=== PATIENT | male | born 1955 | race African-American/Black ===

== ENCOUNTER 2016-06-20 15:22 | Emergency (ER) | payer SELFPAY ==
[2016-06-20 17:55] LABS: Basophils % (Auto) 0.1 % (0.0-1.8); Eosinophils % (Auto) 1.7 % (0.0-4.3); Hematocrit 45.4 % (35.5-45.6); Hemoglobin 15.7 gm/dl (11.8-15.2); Mean Corpuscular HGB Conc 35 % (32-34); Mean Corpuscular Hemoglobin 31 pg (28-32); Mean Corpuscular Volume 89 fl (84-94); Platelet Count 205 K/mm3 (140-440); Red Blood Count 5.13 M/mm3 (3.65-5.03); White Blood Count 10.3 K/mm3 (4.5-11.0)
[2016-06-20 18:12] LABS: Urine Drugs of Abuse Note Disclamer
[2016-06-20 18:24] LABS: Anion Gap 15 mmol/L; BUN/Creatinine Ratio 28.33; Blood Urea Nitrogen 17 mg/dL (9-20); Calcium 9.6 mg/dL (8.4-10.2); Carbon Dioxide 28 mmol/L (22-30); Chloride 98.8 mmol/L (98-107); Glucose 100 mg/dL (75-100); Potassium 4.4 mmol/L (3.6-5.0); Sodium 137 mmol/L (137-145)
[2016-06-20 18:25] LABS: Bilirubin,Urine NEG (Negative); Blood,Urine MOD (Negative); Ketones,Urine NEG (Negative); Leukocyte Esterase,Urine NEG (Negative); Mucus,Urine FEW /HPF; Nitrite,Urine NEG (Negative); Urobilinogen,Urine < 2.0 mg/dL (<2.0)
--- NOTE | 2016-06-20 19:15 | Emergency Department Report ---
ED Psych HPI - General Chief Complaint: Psych Stated Complaint: MH EVALUATION Time Seen by Provider: 06/20/16 18:09 Source: patient Mode of arrival: Ambulatory - History of Present Illness Initial Comments: Pt is a 61 yr old male with a history of depression who presents with suicidal ideations with intent to walk into traffic. Patient reports he no longer takes any medications like some help. She reports she does have a suicidal history and has tried to walk and traffic in the past. Otherwise no fevers, chills, headaches, nausea, vomiting, diarrhea, shortness of breath, chest pain, abdominal pain, travel, or sick contacts. MD Complaint: suicidal ideation - Related Data Home Medications Medication Instructions Recorded Confirmed Last Taken No Known Home Medications [No 06/20/16 06/20/16 Unknown Reported Home Medications] Allergies Allergy/AdvReac Type Severity Reaction Status Date / Time No Known Allergies Allergy Unverified 06/20/16 17:29 ED Review of Systems ROS: Stated complaint: MH EVALUATION Other details as noted in HPI Comment: All other systems reviewed and negative ED Past Medical Hx - Past Medical History Hx Psychiatric Treatment: Yes (Depression) - Surgical History Additional Surgical History: Hernia, right leg surgery - Social History Smoking Status: Never Smoker Substance Use Type: None - Medications Home Medications: Home Medications Medication Instructions Recorded Confirmed Last Taken Type No Known Home Medications [No 06/20/16 06/20/16 Unknown History Reported Home Medications] ED Physical Exam - General Limitations: No Limitations General appearance: alert, in no apparent distress - Head Head exam: Present: atraumatic, normocephalic - Eye Eye exam: Present: normal appearance - ENT ENT exam: Present: mucous membranes moist - Neck Neck exam: Present: normal inspection - Respiratory Respiratory exam: Present: normal lung sounds bilaterally. Absent: respiratory distress - Cardiovascular Cardiovascular Exam: Present: regular rate, normal rhythm. Absent: systolic murmur, diastolic murmur, rubs, gallop - GI/Abdominal GI/Abdominal exam: Present: soft, normal bowel sounds - Rectal Rectal exam: Present: deferred - Extremities Exam Extremities exam: Present: normal inspection - Back Exam Back exam: Present: normal inspection - Neurological Exam Neurological exam: Present: alert, oriented X3 - Psychiatric Psychiatric exam: Present: normal affect, normal mood - Skin Skin exam: Present: warm, dry, intact, normal color. Absent: rash ED Course Vital Signs 06/20/16 06/20/16 17:29 18:17 Temperature 98.3 F Pulse Rate 88 Respiratory 18 18 Rate Blood Pressure 131/98 O2 Sat by Pulse 99 99 Oximetry ED Medical Decision Making - Lab Data Result diagrams: 06/20/16 17:42 06/20/16 17:42 Critical care attestation.: If time is entered above; I have spent that time in minutes in the direct care of this critically ill patient, excluding procedure time. ED Disposition Condition: Stable Referrals: PRIMARY CARE, [Primary Care Provider] - 3-5 Days
[2016-06-21 10:33] VITALS: BP 135/94
--- NOTE | 2016-06-21 11:49 | Consultation ---
History of Present Illness - Reason for Consult Consult date: 06/21/16 Reason for consult: Mental Health Evaluation Requesting physician: NESTOR JACOBO - Chief Complaint Chief complaint: "I am tired" - History of Present Psychiatric Illness 61 yr old male with a history of depression who presents with suicidal ideations with intent to walk into traffic. Today patient is calm and cooperative. He stated that he wanted to kill himself by walking into traffic, so he decided to call EMS. He stated that he is overwhelmed with life stressors (finances and medical condition). Per the patient, his has a brain tumor and he is worried that she may soon. He could not tell me when the last time his seen a doctor. Also, patient stated that he is unemployed and receive "SSI" for major depression. He stated that depression has been an issue for him a "long time." He stated that his depression has gotten worse the last month, because of his 's medical condition. He stated, "I can't help her at all." Patient admit to being hospitalized in [place] for depression and suicidal attempt in the past. He stated that he thought about walking into traffic weeks ago. He acknowledged taking antidepressants in the past, but could not name any of the medications. He denies SI/HI's, AVH's, or a poor appetite. He admit to sleep disturbance and rate his depression 7/10, with 10 being the worse. Medications and Allergies Allergies Allergy/AdvReac Type Severity Reaction Status Date / Time No Known Allergies Allergy Unverified 06/20/16 17:29 Home Medications Medication Instructions Recorded Confirmed Last Taken Type No Known Home Medications [No 06/20/16 06/20/16 Unknown History Reported Home Medications] Past psychiatric history - Past Medical History Past Medical History: other (Hernia) Past Surgical History: Other (right leg surgery) - past Psychiatric treatment and history Psych: Depression psychiatric treatment history: Inpatient is [place], [place]. Mother had depression. 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) Mental Status Exam - Vital signs Last Vital Signs Temp 98.1 F 06/21/16 10:32 Pulse 86 06/21/16 10:32 Resp 16 06/21/16 10:32 BP 135/94 06/21/16 10:32 Pulse Ox 98 06/21/16 10:32 - Exam Narrative exam: ROS (+) depression MSE: Appearance: calm, cooperative Behavior: good eye contact Speech: regular rate and tone Mood: "I am sad" Affect: congruent to mood Thought Process: linear Thought Content: denies SI/HI's and AVH's Motor Activity: ambulatory Cognition: A/Ox3 Insight: fair Judgment: poor Results Result Diagrams: 06/20/16 17:42 06/20/16 17:42 Abnormal lab results 06/20/16 06/20/16 Range/Units 17:42 17:42 RBC 5.13 H (3.65-5.03) M/mm3 Hgb 15.7 H (11.8-15.2) gm/dl MCHC 35 H (32-34) % RDW 13.0 L (13.2-15.2) % Creatinine 0.6 L (0.8-1.5) mg/dL All other labs normal. Assessment and Plan Assessment and plan: Impression: MDD severe type/KIRK: 61 yr old male with a history of depression who presents with suicidal ideations with intent to walk into traffic. Today patient is calm and cooperative. He stated that he wanted to kill himself by walking into traffic, so he decided to call EMS. He stated that he is overwhelmed with life stressors (finances and medical condition). Per the patient, his has a brain tumor and he is worried that she may soon. He denies SI/HI's and AVH's. Positive for barbiturates. DD: Adjustment DO, R/O Bipolar Recommendation/Plan: Continue 1013 with placement to inpatient. Start Zoloft 50 mg PO Daily for depression and Trazodone 50 mg PO HS for sleep. Discussed possible suicidality and medication induced rena reference antidepressants. Discussed generalized coping skill with patient.
[2016-06-21] MEDS ORDERED: ZOLOFT PO SCH (16:00)
[2016-06-21] MEDS ORDERED: DESYREL PO SCH (22:00)
== END 2016-06-21 16:50 ==
LOC: EEVIPCON 15:22 → ED 15:22
DX: R45.851 Suicidal ideations (principal); F32.9 Major depressive disorder, single episode, unspecified
CPT/HCPCS: 36415; 80048; 80307; 81001; 85025; 99285; G0480; 80320

== ENCOUNTER 2016-06-29 02:44 | Emergency (ER) | payer MEDICARE ==
[2016-06-29 03:28] LABS: Basophils % (Auto) 0.2 % (0.0-1.8); Eosinophils % (Auto) 1.5 % (0.0-4.3); Hematocrit 47.3 % (35.5-45.6); Hemoglobin 16.2 gm/dl (11.8-15.2); Mean Corpuscular HGB Conc 34 % (32-34); Mean Corpuscular Hemoglobin 30 pg (28-32); Mean Corpuscular Volume 88 fl (84-94); Platelet Count 225 K/mm3 (140-440); Red Blood Count 5.37 M/mm3 (3.65-5.03); Red Cell Distribution Width 12.6 % (13.2-15.2); White Blood Count 9.6 K/mm3 (4.5-11.0)
[2016-06-29 03:42] LABS: Bilirubin,Urine NEG (Negative); Blood,Urine MOD (Negative); Ketones,Urine NEG (Negative); Leukocyte Esterase,Urine NEG (Negative); Mucus,Urine 1+ /HPF; Nitrite,Urine NEG (Negative); Urobilinogen,Urine < 2.0 mg/dL (<2.0)
[2016-06-29 04:03] LABS: Anion Gap 17 mmol/L; Blood Urea Nitrogen 21 mg/dL (9-20); Calcium 9.7 mg/dL (8.4-10.2); Carbon Dioxide 26 mmol/L (22-30); Chloride 95.9 mmol/L (98-107); Glucose 130 mg/dL (75-100); Potassium 4.4 mmol/L (3.6-5.0); Sodium 134 mmol/L (137-145)
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
[2016-06-29] MEDS ORDERED: NACL 0.9% 1000 ML 1,000 ML IV ONE (09:06)
[2016-06-29 10:48] VITALS: BP 137/95
== END 2016-06-29 10:49 | disposition home or self-care (01) ==
LOC: ED 02:44
DX: E86.0 Dehydration (principal); E87.1 Hypo-osmolality and hyponatremia; R63.4 Abnormal weight loss; F32.9 Major depressive disorder, single episode, unspecified
CPT/HCPCS: 36415; 80048; 81001; 85025; 93005; 93010; 96360; 99284; J7030

== ENCOUNTER 2016-06-30 17:56 | Inpatient (IN) | payer MEDICARE ==
[2016-06-30 18:48] LABS: Basophils % (Auto) 0.2 % (0.0-1.8); Eosinophils % (Auto) 0.4 % (0.0-4.3); Hematocrit 39.9 % (35.5-45.6); Mean Corpuscular HGB Conc 35 % (32-34); Mean Corpuscular Hemoglobin 31 pg (28-32); Mean Corpuscular Volume 89 fl (84-94); Platelet Count 182 K/mm3 (140-440); Red Blood Count 4.49 M/mm3 (3.65-5.03); Red Cell Distribution Width 12.9 % (13.2-15.2); White Blood Count 9.4 K/mm3 (4.5-11.0)
[2016-06-30 19:22] LABS: Alanine Aminotransferase 27 units/L (7-56); Albumin 3.3 g/dL (3.9-5); Albumin/Globulin Ratio 1.5 %; Alkaline Phosphatase 88 units/L (35-129); Anion Gap 16 mmol/L; Blood Urea Nitrogen 14 mg/dL (9-20); Calcium 8.3 mg/dL (8.4-10.2); Carbon Dioxide 24 mmol/L (22-30); Chloride 107.6 mmol/L (98-107); Glucose 111 mg/dL (75-100); Potassium 3.8 mmol/L (3.6-5.0); Sodium 144 mmol/L (137-145); Total Protein 5.5 g/dL (6.3-8.2)
[2016-06-30 20:40] LABS: Creatine Kinase MB 2.4 ng/mL (0.0-4.0)
[2016-06-30 20:41] LABS: Creatine Kinase 43 units/L (55-170)
--- NOTE | 2016-06-30 21:07 | Emergency Department Report ---
ED Syncope HPI - General Chief Complaint: Syncope Stated Complaint: SYNCOPE Time Seen by Provider: 06/30/16 20:21 Source: patient Exam Limitations: no limitations - History of Present Illness Initial Comments: 61-year-old male with a past medical history of depression presents to the hospital with complaints of syncope. Patient was outside cutting his grass then felt lightheaded and passed out. Son reported that duration of LOC was approximately 1 minute. Patient was seen here yesterday for lightheadedness and near syncope. Sodium was found to be 134 and patient was treated with normal saline and discharged home. Patient denies any headache, chest pain, shortness of breath, abdominal pain, nausea, vomiting, melena, or hematochezia. He does report a 20 pound weight loss in one month's time and decreased appetite. Patient received 1 L of normal saline in route to the hospital provided by EMS. - Related Data Allergies/Adverse Reactions: Allergies No Known Allergies Allergy (Unverified 06/20/16 17:29) Home Medications: Ambulatory Orders No Known Home Medications [No Reported Home Medications] 06/30/16 ED Review of Systems ROS: Stated complaint: SYNCOPE Other details as noted in HPI Comment: All other systems reviewed and negative Other: Constitutional: No fevers chills or weight loss Eyes: No eye pain visual changes or discharge ENT: No ear pain or throat pain Neck: Denies pain Respiratory: Denies cough wheezing shortness of breath Cardiovascular: Denies chest pain, palpitations GI: Denies abdominal pain, nausea, vomiting, diarrhea : Denies dysuria Musculoskeletal: Denies back pain Skin: Denies rash, lesions, erythema Neurologic: Denies headache, numbness, weakness ED Past Medical Hx - Past Medical History Hx Psychiatric Treatment: Yes (Depression) Additional medical history: hyponatremia - Surgical History Additional Surgical History: Hernia, right leg surgery - Social History Smoking Status: Never Smoker Substance Use Type: None - Medications Home Medications: Home Medications Medication Instructions Recorded Confirmed Last Taken Type No Known Home Medications [No 06/30/16 06/30/16 Unknown History Reported Home Medications] ED Physical Exam - General Limitations: No Limitations - Other Other exam information: General: No limitations, patient is alert in no acute distress Head exam: Atraumatic, normocephalic Eyes exam: Normal appearance ENT: Moist mucous membrane, normal oropharynx no meningismus nontender Neck exam: Normal inspection, full range of motion, Respiratory exam: Clear to auscultation bilateral, no wheezes, rales, crackles Cardiovascular: Normal rate and rhythm, normal heart sounds Abdomen: Soft, nondistended, and nontender, with normal bowel sounds, no rebound, or guarding Extremity: Full range of motion normal inspection no deformity Back: Normal Inspection, full range of motion, no tenderness Neurologic: Alert, oriented x3, cranial nerves intact, no motor or sensory deficit Psychiatric: normal affect, normal mood Skin: Warm, dry, intact ED Course Vital Signs 06/30/16 06/30/16 06/30/16 18:17 18:30 18:36 Temperature 98.2 F Pulse Rate 110 H 109 H Respiratory 18 16 16 Rate Blood Pressure 89/58 Blood Pressure 152/101 [Right] O2 Sat by Pulse 99 99 99 Oximetry 06/30/16 19:15 Temperature Pulse Rate 104 H Respiratory 18 Rate Blood Pressure Blood Pressure 92/59 [Right] O2 Sat by Pulse 96 Oximetry - Reevaluation(s) Reevaluation #1: 06/30/16 21:13 With the studies were negative after 1 L normal saline ED Medical Decision Making - Lab Data Result diagrams: 06/30/16 18:28 06/30/16 18:28 Lab Results 06/30/16 06/30/16 06/30/16 Range/Units 18:28 18:28 18:28 WBC 9.4 (4.5-11.0) K/mm3 RBC 4.49 (3.65-5.03) M/mm3 Hgb 14.0 (11.8-15.2) gm/dl Hct 39.9 D (35.5-45.6) % MCV 89 (84-94) fl MCH 31 (28-32) pg MCHC 35 H (32-34) % RDW 12.9 L (13.2-15.2) % Plt Count 182 (140-440) K/mm3 Lymph % (Auto) 18.3 (13.4-35.0) % [place] % (Auto) 9.4 H (0.0-7.3) % Eos % (Auto) 0.4 (0.0-4.3) % Baso % (Auto) 0.2 (0.0-1.8) % Lymph # 1.7 (1.2-5.4) K/mm3 [place] # 0.9 H (0.0-0.8) K/mm3 Eos # 0.0 (0.0-0.4) K/mm3 Baso # 0.0 (0.0-0.1) K/mm3 Seg Neutrophils % 71.7 H (40.0-70.0) % Seg Neutrophils # 6.8 (1.8-7.7) K/mm3 Sodium 144 D (137-145) mmol/L Potassium 3.8 (3.6-5.0) mmol/L Chloride 107.6 H (98-107) mmol/L Carbon Dioxide 24 (22-30) mmol/L Anion Gap 16 mmol/L BUN 14 (9-20) mg/dL Creatinine 0.7 L (0.8-1.5) mg/dL Estimated GFR > 60 ml/min BUN/Creatinine Ratio 20.00 % Glucose 111 H (75-100) mg/dL POC Glucose (70-105) Calcium 8.3 L (8.4-10.2) mg/dL Total Bilirubin 1.20 (0.1-1.2) mg/dL AST 14 (5-40) units/L ALT 27 (7-56) units/L Alkaline Phosphatase 88 (35-129) units/L Total Creatine Kinase 43 L (55-170) units/L CK-MB (CK-2) 2.4 (0.0-4.0) ng/mL CK-MB (CK-2) Rel Index 5.5 H (0-4) Troponin T < 0.010 (0.00-0.029) ng/mL Total Protein 5.5 L (6.3-8.2) g/dL Albumin 3.3 L (3.9-5) g/dL Albumin/Globulin Ratio 1.5 % // Range/Units 20:26 WBC (4.5-11.0) K/mm3 RBC (3.65-5.03) M/mm3 Hgb (11.8-15.2) gm/dl Hct (35.5-45.6) % MCV (84-94) fl MCH (28-32) pg MCHC (32-34) % RDW (13.2-15.2) % Plt Count (140-440) K/mm3 Lymph % (Auto) (13.4-35.0) % [place] % (Auto) (0.0-7.3) % Eos % (Auto) (0.0-4.3) % Baso % (Auto) (0.0-1.8) % Lymph # (1.2-5.4) K/mm3 [place] # (0.0-0.8) K/mm3 Eos # (0.0-0.4) K/mm3 Baso # (0.0-0.1) K/mm3 Seg Neutrophils % (40.0-70.0) % Seg Neutrophils # (1.8-7.7) K/mm3 Sodium (137-145) mmol/L Potassium (3.6-5.0) mmol/L Chloride (98-107) mmol/L Carbon Dioxide (22-30) mmol/L Anion Gap mmol/L BUN (9-20) mg/dL Creatinine (0.8-1.5) mg/dL Estimated GFR ml/min BUN/Creatinine Ratio % Glucose (75-100) mg/dL POC Glucose 101 (70-105) Calcium (8.4-10.2) mg/dL Total Bilirubin (0.1-1.2) mg/dL AST (5-40) units/L ALT (7-56) units/L Alkaline Phosphatase (35-129) units/L Total Creatine Kinase (55-170) units/L CK-MB (CK-2) (0.0-4.0) ng/mL CK-MB (CK-2) Rel Index (0-4) Troponin T (0.00-0.029) ng/mL Total Protein (6.3-8.2) g/dL Albumin (3.9-5) g/dL Albumin/Globulin Ratio % - EKG Data -: EKG Interpreted by Me (sinus rhythm 98 LVH early R-wave progression) - EKG Data When compared to previous EKG there are: no significant change (come back to ) - Medical Decision Making Plan to admit patient to hospital for syncopal episode. Patient presented here yesterday for near-syncope. Will be admitted for further workup. - Differential Diagnosis arrhythmia, dehydration, anemia Critical Care Time: No Critical care attestation.: If time is entered above; I have spent that time in minutes in the direct care of this critically ill patient, excluding procedure time. ED Disposition Clinical Impression: Syncope, Weight loss Disposition: OP ADMITTED IP TO THIS HOSP Is pt being admited?: Yes Condition: Stable Time of Disposition: 21:16 (Dr. Peña/hospitalist)
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
--- NOTE | 2016-06-30 22:48 | Cat Scan Report ---
FINAL REPORT EXAM: CT HEAD/BRAIN WO CON HISTORY: syncope and head trauma TECHNIQUE: CT imaging is acquired through the brain without contrast. Transaxial reformations are provided. PRIORS: None. FINDINGS: Ventricles and CSF spaces are within normal limits. Scattered deep and subcortical white matter hypodense foci are confluent in some areas and are compatible with microvascular angiopathy. No acute intracranial hemorrhage or mass effect. Right posterior scalp injury. No skull fracture. Partially visualized paranasal sinuses are clear. Mastoids are clear. IMPRESSION: No acute intracranial abnormality or skull fracture. Right posterior superior scalp injury. There are chronic sequela of microvascular angiopathy.
[2016-07-01 00:56] LABS: Creatine Kinase 52 units/L (55-170); Creatine Kinase MB 2.9 ng/mL (0.0-4.0)
[2016-07-01 07:30] LABS: Hematocrit 43.1 % (35.5-45.6); Hemoglobin 14.9 gm/dl (11.8-15.2); Mean Corpuscular HGB Conc 35 % (32-34); Mean Corpuscular Hemoglobin 31 pg (28-32); Mean Corpuscular Volume 88 fl (84-94); Platelet Count 186 K/mm3 (140-440); Red Cell Distribution Width 12.8 % (13.2-15.2)
[2016-07-01 07:55] LABS: Creatine Kinase MB 2.9 ng/mL (0.0-4.0)
[2016-07-01 07:57] LABS: Alanine Aminotransferase 35 units/L (7-56); Albumin 3.7 g/dL (3.9-5); Albumin/Globulin Ratio 1.3 %; Alkaline Phosphatase 100 units/L (35-129); Anion Gap 17 mmol/L; BUN/Creatinine Ratio 28.33; Blood Urea Nitrogen 17 mg/dL (9-20); Calcium 9.3 mg/dL (8.4-10.2); Carbon Dioxide 26 mmol/L (22-30); Chloride 102.5 mmol/L (98-107); Glucose 125 mg/dL (75-100); Potassium 4.1 mmol/L (3.6-5.0); Sodium 141 mmol/L (137-145); Total Protein 6.6 g/dL (6.3-8.2)
[2016-07-01 07:59] LABS: Creatine Kinase 44 units/L (55-170)
--- NOTE | 2016-07-01 08:25 | Admit Criteria Form ---
Admission Criteria Documentation: SYNCOPE Clinical Indications for Admission to Inpatient Care ( Place 'X' for any and all applicable criteria): Admission is indicated for syncope and ANY ONE of the following (1)(2)(3)(4)(5) (6)(7) : [X ]I. Inpatient admission required rather than observation care (Also use Syncope: Observation Care Criteria as appropriate) because of ANY ONE of the following: [ ]a) Hemodynamic instability that is severe or persistent [ ]b) Cardiac arrhythmias of immediate concern identified or strongly suspected (eg, needs electrophysiologic study) [ ]c) Acute coronary syndrome identified (Also use Myocardial Infarction or Angina Criteria form ) [ ]d) Structural cardiac disorder (eg, aortic stenosis) suspected as cause that requires immediate correction [ ]e) Respiratory symptoms (eg, dyspnea, tachypnea) that are severe or persistent [ ]f) Neurologic signs or symptoms that are severe or persistent ( eg, stroke, seizures, altered mental status) [ ]g) Severe electrolyte abnormalities requiring inpatient care [ ]h) Supplemental oxygen or respiratory treatment for over 24 hrs that are performable only in acute inpatient setting [ ]i) IV fluid to replace significant ongoing (eg, for over 24 hrs ) losses (>3 L/m2 per day) [ ]j) Continuous intravenous infusion of anticoagulation, platelet inhibitor, vasoactive, or antiarrhythmic medication(15)(16) [ ]k) Pulmonary artery catheter monitoring [ ]l) Temporary pacemaker placement(17) [ ]m) Emergent cardioversion(18) [X ]n) Other conditions, treatment or monitoring requiring inpatient admission [ ]II. Suspicion of imminently dangerous cause (eg, rare causes like pericardial tamponade, pulmonary embolism) [ ]III. Syncope causing severe injury requiring hospitalization Extended stay beyond goal length of stay may be needed for(28) [ ]a) Dangerous arrhythmia(15)(23)(27)(29) [ ]b) Myocardial ischemia [ ]c) Seizure disorder [ ]d) Syncope-related injuries The original [employer] content created by [employer] has been revised. The portions of the content which have been revised are identified through the use of italic text or in bold, and [employer] has neither reviewed nor approved the modified material. All other unmodified content is copyright [facility] [employer]. Please see references footnoted in the original [facility] edition 2016 Admission Criteria Met: Yes
--- NOTE | 2016-07-01 11:11 | Cat Scan Report ---
CT ABDOMEN AND PELVIS WITHOUT CONTRAST INDICATION: RLQ pain. COMPARISON: None similar. FINDINGS: Noncontrast abdomen and pelvis CT performed. LUNG BASES: Nonspecific distal esophageal wall prominence/thickening, not excluded for gastroesophageal reflux and/or hiatal hernia, amongst others. ABDOMEN: Please note that sensitivity to detect small visceral lesions is limited due to the absence of intravenous or oral contrast. Grossly unremarkable unenhanced liver, spleen, gallbladder, pancreas, adrenals, nonaneurysmal abdominal aorta, IVC and kidneys. No ascites or size significant adenopathy. Nonopacified GI tract evaluation limited, though grossly nonobstructive. Normal appendix. Mild ascending colon stool. Small fat containing umbilical hernia with a transverse neck of 7 mm. PELVIS: Few left lower quadrant probable hernia repair surgical clips. Mildly enlarged prostate creates an impression at the bladder base and may be correlated for clinically and with PSA. Otherwise grossly unremarkable nonopacified urinary bladder, seminal vesicles and rectosigmoid. No free fluid or significant adenopathy. Approximately 2 cm fat-containing right inguinal hernia. Moderate to severe L5-S1 disc narrowing with vacuum phenomenon and mild degenerative spurring. Additional mild multilevel spinal degenerative spurring and lower lumbar facet arthropathy also noted. CONCLUSION: No acute CT abnormality with various other findings, as above. Thank you for the opportunity to participate in this patient's care.
--- NOTE | 2016-07-01 11:14 | Progress Note ---
Assessment and Plan Assessment and plan: Abdominal pain. CT scan of the abdomen and pelvis shows no acute abnormalities. Syncope. Follow-up carotid Doppler and echocardiogram. Unintentional weight loss most likely due to his depression. He needs outpatient cancer screening with his PCP DVT prophylaxis. Continue Lovenox. History Interval history: Patient with an episode this morning right lower quadrant abdominal pain necessitating CIRCULATOR per nursing. Patient has some mild tachycardia with initial heart rate 130s now 105. Patient denies any other symptomatology. Hospitalist Physical - Constitutional Vitals: Temp Pulse Resp BP Pulse Ox 97.8 F 112 H 18 154/98 97 07/01/16 08:00 07/01/16 10:07 07/01/16 08:00 07/01/16 08:00 07/01/16 08:00 General appearance: Present: no acute distress, well-nourished - EENT Eyes: Present: PERRL, EOM intact ENT: hearing intact, clear oral mucosa, dentition normal - Neck Neck: Present: supple, normal ROM - Respiratory Respiratory effort: normal Respiratory: bilateral: CTA - Cardiovascular Rhythm: regular Heart Sounds: Present: S1 & S2. Absent: gallop, rub - Extremities Extremities: no ischemia, No edema, Full ROM - Abdominal General gastrointestinal: soft, tender, non-distended, normal bowel sounds Localized gastrointestinal: tender: RLQ (mild) - Integumentary Integumentary: Present: clear, warm, dry - Neurologic Neurologic: CNII-XII intact, moves all extremities Results - Labs CBC & Chem 7: 07/01/16 07:08 07/01/16 07:08 Labs: Laboratory Last Values WBC 8.0 K/mm3 (4.5-11.0) 07/01/16 07:08 RBC 4.90 M/mm3 (3.65-5.03) 07/01/16 07:08 Hgb 14.9 gm/dl (11.8-15.2) 07/01/16 07:08 Hct 43.1 % (35.5-45.6) 07/01/16 07:08 MCV 88 fl (84-94) 07/01/16 07:08 MCH 31 pg (28-32) 07/01/16 07:08 MCHC 35 % (32-34) H 07/01/16 07:08 RDW 12.8 % (13.2-15.2) L 07/01/16 07:08 Plt Count 186 K/mm3 (140-440) 07/01/16 07:08 Lymph % (Auto) 18.3 % (13.4-35.0) 06/30/16 18:28 [place] % (Auto) 9.4 % (0.0-7.3) H 06/30/16 18:28 Eos % (Auto) 0.4 % (0.0-4.3) 06/30/16 18:28 Baso % (Auto) 0.2 % (0.0-1.8) 06/30/16 18:28 Lymph # 1.7 K/mm3 (1.2-5.4) 06/30/16 18:28 [place] # 0.9 K/mm3 (0.0-0.8) H 06/30/16 18:28 Eos # 0.0 K/mm3 (0.0-0.4) 06/30/16 18:28 Baso # 0.0 K/mm3 (0.0-0.1) 06/30/16 18:28 Seg Neutrophils % 71.7 % (40.0-70.0) H 06/30/16 18:28 Seg Neutrophils # 6.8 K/mm3 (1.8-7.7) 06/30/16 18:28 Sodium 141 mmol/L (137-145) 07/01/16 07:08 Potassium 4.1 mmol/L (3.6-5.0) 07/01/16 07:08 Chloride 102.5 mmol/L (98-107) 07/01/16 07:08 Carbon Dioxide 26 mmol/L (22-30) 07/01/16 07:08 Anion Gap 17 mmol/L 07/01/16 07:08 BUN 17 mg/dL (9-20) 07/01/16 07:08 Creatinine 0.6 mg/dL (0.8-1.5) L 07/01/16 07:08 Estimated GFR > 60 ml/min 07/01/16 07:08 BUN/Creatinine Ratio 28.33 % 07/01/16 07:08 Glucose 125 mg/dL (75-100) H 07/01/16 07:08 POC Glucose 101 (70-105) 06/30/16 20:26 Calcium 9.3 mg/dL (8.4-10.2) 07/01/16 07:08 Total Bilirubin 1.30 mg/dL (0.1-1.2) H 07/01/16 07:08 AST 18 units/L (5-40) 07/01/16 07:08 ALT 35 units/L (7-56) 07/01/16 07:08 Alkaline Phosphatase 100 units/L (35-129) 07/01/16 07:08 Total Creatine Kinase 44 units/L (55-170) L 07/01/16 07:08 CK-MB (CK-2) 2.9 ng/mL (0.0-4.0) 07/01/16 07:08 CK-MB (CK-2) Rel Index 6.5 (0-4) H 07/01/16 07:08 Troponin T < 0.010 ng/mL (0.00-0.029) 07/01/16 07:08 Total Protein 6.6 g/dL (6.3-8.2) 07/01/16 07:08 Albumin 3.7 g/dL (3.9-5) L 07/01/16 07:08 Albumin/Globulin Ratio 1.3 % 07/01/16 07:08 TSH < 0.005 mlU/mL (0.270-4.200) L 07/01/16 07:08
[2016-07-01] MEDS ORDERED: LEXISCAN IV ONE ×2 (11:44→11:48)
[2016-07-01] MEDS: LOVENOX SUB-Q SCH (22:35)
--- NOTE | 2016-07-02 05:05 | Treadmill Report ---
THALLIUM STRESS TEST LEFT VENTRICLE: Left ventricular chamber size is within normal spread. Perfusion study demonstrates homogeneous uptake of the tracer in all segments, no significant perfusion defects identified. Gated analysis demonstrates normal left ventricular systolic function, ejection fraction 76%. CONCLUSION: Normal myocardial perfusion study. JOB# [id number] CA/NTS
[2016-07-02] MEDS ORDERED: HEPARIN 10,000 UNITS/10 ML IV ONE (08:22)
[2016-07-02] MEDS: LOVENOX SUB-Q SCH (10:15)
--- NOTE | 2016-07-02 10:21 | Progress Note ---
Assessment and Plan Assessment and plan: Right ICA mobile thrombus. Patient was to have stat CTA of the neck but patient is not talkative and uncooperative. Patient refuses to consent for the procedure or the heparin drip. Medical noncompliance. ? Related to his depression. The risks were explained to the patient including stroke, paralysis and . Syncope. Echocardiogram revealed LVH and an EF of 55%. Patient with abnormal left ventricular diastolic filling consistent with impaired relaxation. Unintentional weight loss Depression. Psychiatric evaluation. Right inguinal hernia. Patient complaining of right groin pain yesterday. DVT prophylaxis. Continue Lovenox. History Interval history: Patient with carotid Doppler that revealed right ICA multiple thrombus. I discussed the case with Dr. Metz. The risk were explained to the patient including stroke, paralysis and . Hospitalist Physical - Constitutional Vitals: Temp Pulse Resp BP Pulse Ox 98.6 F 104 H 20 132/93 97 07/02/16 06:10 07/02/16 06:10 07/02/16 06:10 07/02/16 06:10 07/02/16 06:10 General appearance: Present: no acute distress, well-nourished, other ( uncooperative and not talkative.) - EENT Eyes: Present: PERRL, EOM intact ENT: hearing intact, clear oral mucosa, dentition normal - Neck Neck: Present: supple, normal ROM - Respiratory Respiratory effort: normal Respiratory: bilateral: CTA - Cardiovascular Rhythm: regular Heart Sounds: Present: S1 & S2. Absent: gallop, rub - Extremities Extremities: no ischemia, No edema, Full ROM - Abdominal General gastrointestinal: soft, non-tender, non-distended, normal bowel sounds - Integumentary Integumentary: Present: clear, warm, dry - Neurologic Neurologic: CNII-XII intact, moves all extremities Results - Labs CBC & Chem 7: 07/01/16 07:08 07/01/16 07:08 Labs: Laboratory Last Values WBC 8.0 K/mm3 (4.5-11.0) 07/01/16 07:08 RBC 4.90 M/mm3 (3.65-5.03) 07/01/16 07:08 Hgb 14.9 gm/dl (11.8-15.2) 07/01/16 07:08 Hct 43.1 % (35.5-45.6) 07/01/16 07:08 MCV 88 fl (84-94) 07/01/16 07:08 MCH 31 pg (28-32) 07/01/16 07:08 MCHC 35 % (32-34) H 07/01/16 07:08 RDW 12.8 % (13.2-15.2) L 07/01/16 07:08 Plt Count 186 K/mm3 (140-440) 07/01/16 07:08 Lymph % (Auto) 18.3 % (13.4-35.0) 06/30/16 18:28 [place] % (Auto) 9.4 % (0.0-7.3) H 06/30/16 18:28 Eos % (Auto) 0.4 % (0.0-4.3) 06/30/16 18:28 Baso % (Auto) 0.2 % (0.0-1.8) 06/30/16 18:28 Lymph # 1.7 K/mm3 (1.2-5.4) 06/30/16 18:28 [place] # 0.9 K/mm3 (0.0-0.8) H 06/30/16 18:28 Eos # 0.0 K/mm3 (0.0-0.4) 06/30/16 18:28 Baso # 0.0 K/mm3 (0.0-0.1) 06/30/16 18:28 Seg Neutrophils % 71.7 % (40.0-70.0) H 06/30/16 18:28 Seg Neutrophils # 6.8 K/mm3 (1.8-7.7) 06/30/16 18:28 Sodium 141 mmol/L (137-145) 07/01/16 07:08 Potassium 4.1 mmol/L (3.6-5.0) 07/01/16 07:08 Chloride 102.5 mmol/L (98-107) 07/01/16 07:08 Carbon Dioxide 26 mmol/L (22-30) 07/01/16 07:08 Anion Gap 17 mmol/L 07/01/16 07:08 BUN 17 mg/dL (9-20) 07/01/16 07:08 Creatinine 0.6 mg/dL (0.8-1.5) L 07/01/16 07:08 Estimated GFR > 60 ml/min 07/01/16 07:08 BUN/Creatinine Ratio 28.33 % 07/01/16 07:08 Glucose 125 mg/dL (75-100) H 07/01/16 07:08 POC Glucose 122 (70-105) H 07/01/16 08:38 Calcium 9.3 mg/dL (8.4-10.2) 07/01/16 07:08 Total Bilirubin 1.30 mg/dL (0.1-1.2) H 07/01/16 07:08 AST 18 units/L (5-40) 07/01/16 07:08 ALT 35 units/L (7-56) 07/01/16 07:08 Alkaline Phosphatase 100 units/L (35-129) 07/01/16 07:08 Total Creatine Kinase 44 units/L (55-170) L 07/01/16 07:08 CK-MB (CK-2) 2.9 ng/mL (0.0-4.0) 07/01/16 07:08 CK-MB (CK-2) Rel Index 6.5 (0-4) H 07/01/16 07:08 Troponin T < 0.010 ng/mL (0.00-0.029) 07/01/16 07:08 Total Protein 6.6 g/dL (6.3-8.2) 07/01/16 07:08 Albumin 3.7 g/dL (3.9-5) L 07/01/16 07:08 Albumin/Globulin Ratio 1.3 % 07/01/16 07:08 TSH < 0.005 mlU/mL (0.270-4.200) L 07/01/16 07:08
[2016-07-02] MEDS ORDERED: HEPARIN/ 0.45% NACL-25,000 UNIT/500 ML 25,000 UNIT/500 ML BAG IV SCH (11:30)
[2016-07-02 14:22] LABS: Hematocrit 46.3 % (35.5-45.6); Hemoglobin 15.8 gm/dl (11.8-15.2)
[2016-07-02 14:33] LABS: INR 1.08 (0.87-1.13)
[2016-07-02 14:34] LABS: Partial Thromboplastin Time 26.5 Sec. (24.2-36.6)
[2016-07-02] MEDS ORDERED: CEPHULAC PO ONE (22:00)
[2016-07-03] MEDS: TORADOL IV PRN ×3 (00:53→20:19)
--- NOTE | 2016-07-03 10:00 | Vascular Lab Report ---
RIGHT CAROTID ARTERY DUPLEX Reason for exam: Repeat study because a questionable finding in the previous formal ultrasound Comments on the right: The common and internal carotid arteries are patent without evidence of intraluminal irregularities. Flow velocities appear to be appropriate. Impression: No evidence of thrombus in the right carotid arteries
[2016-07-03 10:30] LABS: Basophils % (Auto) 0.2 % (0.0-1.8); Eosinophils % (Auto) 0.5 % (0.0-4.3); Hematocrit 47.5 % (35.5-45.6); Hemoglobin 16.4 gm/dl (11.8-15.2); Mean Corpuscular HGB Conc 35 % (32-34); Mean Corpuscular Hemoglobin 30 pg (28-32); Mean Corpuscular Volume 88 fl (84-94); Platelet Count 232 K/mm3 (140-440); Red Blood Count 5.42 M/mm3 (3.65-5.03); Red Cell Distribution Width 12.9 % (13.2-15.2); White Blood Count 9.6 K/mm3 (4.5-11.0)
[2016-07-03 10:59] LABS: Anion Gap 20 mmol/L; Blood Urea Nitrogen 27 mg/dL (9-20); Calcium 9.7 mg/dL (8.4-10.2); Carbon Dioxide 22 mmol/L (22-30); Chloride 98.6 mmol/L (98-107); Glucose 133 mg/dL (75-100); Potassium 3.8 mmol/L (3.6-5.0); Sodium 137 mmol/L (137-145)
--- NOTE | 2016-07-03 11:29 | Progress Note ---
Assessment and Plan Assessment and plan: Right ICA mobile thrombus. Patient was to have stat CTA of the neck but patient is refusing at this time. Medical noncompliance. ? Related to his depression. The risks were explained to the patient including stroke, paralysis and . Patient voiced understanding. Patient states that he needs to get home to his . Patient with considerations and to decide regarding AMA discharge. Syncope. Echocardiogram revealed LVH and an EF of 55%. Patient with abnormal left ventricular diastolic filling consistent with impaired relaxation. Unintentional weight loss Depression. Psychiatric evaluation. Right inguinal hernia. Patient complaining of right groin pain yesterday. DVT prophylaxis. Continue Lovenox. History Interval history: Patient with carotid Doppler that revealed right ICA multiple thrombus. I discussed the case with Dr. Metz. The patient refused heparin and CTA of the neck for further evaluation. The risks were explained to the patient including stroke, paralysis and . Patient voiced understanding. Patient states that he would like to think about further evaluation, treatment plans and leaving AMA. Patient states that he needs to get home to his . Hospitalist Physical - Constitutional Vitals: Temp Pulse Resp BP Pulse Ox 98.9 F 134 H 20 124/87 97 07/03/16 08:00 07/03/16 08:00 07/03/16 08:00 07/03/16 08:00 07/03/16 08:00 General appearance: Present: no acute distress, well-nourished, other ( uncooperative and not talkative.) - EENT Eyes: Present: PERRL, EOM intact ENT: hearing intact, clear oral mucosa, dentition normal - Neck Neck: Present: supple, normal ROM - Respiratory Respiratory effort: normal Respiratory: bilateral: CTA - Cardiovascular Rhythm: regular Heart Sounds: Present: S1 & S2. Absent: gallop, rub - Extremities Extremities: no ischemia, No edema, Full ROM - Abdominal General gastrointestinal: soft, non-tender, non-distended, normal bowel sounds - Integumentary Integumentary: Present: clear, warm, dry - Neurologic Neurologic: CNII-XII intact, moves all extremities Results - Labs CBC & Chem 7: 07/03/16 08:18 07/01/16 07:08 Labs: Laboratory Last Values WBC 9.6 K/mm3 (4.5-11.0) 07/03/16 08:18 RBC 5.42 M/mm3 (3.65-5.03) H 07/03/16 08:18 Hgb 16.4 gm/dl (11.8-15.2) H 07/03/16 08:18 Hct 47.5 % (35.5-45.6) H 07/03/16 08:18 MCV 88 fl (84-94) 07/03/16 08:18 MCH 30 pg (28-32) 07/03/16 08:18 MCHC 35 % (32-34) H 07/03/16 08:18 RDW 12.9 % (13.2-15.2) L 07/03/16 08:18 Plt Count 232 K/mm3 (140-440) 07/03/16 08:18 Lymph % (Auto) 16.0 % (13.4-35.0) 07/03/16 08:18 [place] % (Auto) 7.8 % (0.0-7.3) H 07/03/16 08:18 Eos % (Auto) 0.5 % (0.0-4.3) 07/03/16 08:18 Baso % (Auto) 0.2 % (0.0-1.8) 07/03/16 08:18 Lymph # 1.5 K/mm3 (1.2-5.4) 07/03/16 08:18 [place] # 0.8 K/mm3 (0.0-0.8) 07/03/16 08:18 Eos # 0.0 K/mm3 (0.0-0.4) 07/03/16 08:18 Baso # 0.0 K/mm3 (0.0-0.1) 07/03/16 08:18 Seg Neutrophils % 75.5 % (40.0-70.0) H 07/03/16 08:18 Seg Neutrophils # 7.3 K/mm3 (1.8-7.7) 07/03/16 08:18 PT 13.9 Sec. (12.2-14.9) 07/02/16 13:44 INR 1.08 (0.87-1.13) 07/02/16 13:44 APTT 26.5 Sec. (24.2-36.6) 07/02/16 13:44 Sodium 141 mmol/L (137-145) 07/01/16 07:08 Potassium 4.1 mmol/L (3.6-5.0) 07/01/16 07:08 Chloride 102.5 mmol/L (98-107) 07/01/16 07:08 Carbon Dioxide 26 mmol/L (22-30) 07/01/16 07:08 Anion Gap 17 mmol/L 07/01/16 07:08 BUN 17 mg/dL (9-20) 07/01/16 07:08 Creatinine 0.6 mg/dL (0.8-1.5) L 07/01/16 07:08 Estimated GFR > 60 ml/min 07/01/16 07:08 BUN/Creatinine Ratio 28.33 % 07/01/16 07:08 Glucose 125 mg/dL (75-100) H 07/01/16 07:08 POC Glucose 122 (70-105) H 07/01/16 08:38 Calcium 9.3 mg/dL (8.4-10.2) 07/01/16 07:08 Total Bilirubin 1.30 mg/dL (0.1-1.2) H 07/01/16 07:08 AST 18 units/L (5-40) 07/01/16 07:08 ALT 35 units/L (7-56) 07/01/16 07:08 Alkaline Phosphatase 100 units/L (35-129) 07/01/16 07:08 Total Creatine Kinase 44 units/L (55-170) L 07/01/16 07:08 CK-MB (CK-2) 2.9 ng/mL (0.0-4.0) 07/01/16 07:08 CK-MB (CK-2) Rel Index 6.5 (0-4) H 07/01/16 07:08 Troponin T < 0.010 ng/mL (0.00-0.029) 07/01/16 07:08 Total Protein 6.6 g/dL (6.3-8.2) 07/01/16 07:08 Albumin 3.7 g/dL (3.9-5) L 07/01/16 07:08 Albumin/Globulin Ratio 1.3 % 07/01/16 07:08 TSH < 0.005 mlU/mL (0.270-4.200) L 07/01/16 07:08
[2016-07-03] MEDS: LOVENOX SUB-Q SCH (11:56)
--- NOTE | 2016-07-03 15:51 | Consultation ---
History of Present Illness - Reason for Consult Consult date: 07/03/16 Reason for consult: psychiatric evaluation - Chief Complaint Chief complaint: "Worried" 61 year old male seen on the medical floor. Psychiatry was consulted after patient refused potentially life saving treatment. He was admitted for syncope and hyponatremia. Recent 20lbs weight loss. He declined blood thinners when there was a possibility of ICA thrombus. He is minimally cooperative on interview. There was concern with a language barrier. An full time staff interpreter via the language line was used. He did not answer most questions. He had his head down and picked at his fingers and toenails repeatedly. He appeared diaphoretic and pale as this behavior continued. It appeared to be a panic attack. TSH is 0.005. He admits to severe depression and worry that something is wrong with him. He did not answer questions pertaining to suicidality and homicidality. He did not answer questions regarding hallucinations. He admitted that thoughts were not coming to his mind easily. Medications and Allergies Allergies Allergy/AdvReac Type Severity Reaction Status Date / Time No Known Allergies Allergy Unverified 06/20/16 17:29 Home Medications Medication Instructions Recorded Confirmed Last Taken Type No Known Home Medications [No 06/30/16 06/30/16 Unknown History Reported Home Medications] Active Meds: Active Medications Enoxaparin Sodium (Lovenox) 40 mg SUB-Q QDAY [facility] Last Admin: 07/03/16 11:56 Dose: 40 mg Ketorolac Tromethamine (Toradol) 15 mg IV Q6H PRN PRN Reason: Pain, Mild (1-3) Stop: 07/07/16 21:16 Last Admin: 07/03/16 11:57 Dose: 15 mg Past psychiatric history - Past Medical History Past Medical History: other (history of hernia) Past Surgical History: Other (right leg) - past Psychiatric treatment and history Psych: Depression 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: (but lives with nephew), other (denies alcohol or illicit substance use) Mental Status Exam - Vital signs Last Vital Signs Temp 98.2 F 07/03/16 12:00 Pulse 127 H 07/03/16 12:00 Resp 18 07/03/16 12:00 BP 132/85 07/03/16 12:00 Pulse Ox 98 07/03/16 12:00 - Exam Narrative exam: thought process is limited, possibly disorganized or slow Orientation: place, person Affect: depressed, anxious Mood: congruent with affect Thought content: other ("worry") Perceptions: other (unable to assess) Speech: minimal response Concentration: distractible Motor activity: restless Level of consciousness: alert Appetite: decreased Interaction: guarded Results Result Diagrams: 07/03/16 08:18 07/03/16 08:18 Abnormal lab results 07/03/16 07/03/16 Range/Units 08:18 08:18 RBC 5.42 H (3.65-5.03) M/mm3 Hgb 16.4 H (11.8-15.2) gm/dl Hct 47.5 H (35.5-45.6) % MCHC 35 H (32-34) % RDW 12.9 L (13.2-15.2) % [place] % (Auto) 7.8 H (0.0-7.3) % Seg Neutrophils % 75.5 H (40.0-70.0) % BUN 27 H (9-20) mg/dL Creatinine 0.5 L (0.8-1.5) mg/dL Glucose 133 H (75-100) mg/dL All other labs normal. Assessment and Plan Assessment and plan: Impression: Panic attack during the interview. He identified severe depression and expresses worry about his condition. MDD and anxiety disorder likely. Plan for further attempts at interview to determine extent of depression and anxiety. Unable to determine if psychotic symptoms are present. Recommendation: Educate patient about his condition/need for treatment using the language line if not fluent in [place]. Klonopin 0.5mg bid for anxiety-to be used short term. Hospitalist to address thyroid Paxil 10mg daily for anxiety and depression. Medications risks and benefits discussed with patient Plan to evaluate again in 24 hours. - Psychiatric problem (1) Major depression Current Visit: Yes Status: Acute Qualifiers: Major depression recurrence: M Active/Remission status: A Major depression episode severity: M Psychotic features: P
[2016-07-03] MEDS: PAXIL PO SCH (21:34)
[2016-07-04 07:46] LABS: Hematocrit 43.9 % (35.5-45.6); Hemoglobin 15.5 gm/dl (11.8-15.2)
[2016-07-04] MEDS: LOVENOX SUB-Q SCH (09:41)
--- NOTE | 2016-07-04 11:23 | Progress Note ---
Assessment and Plan Assessment and plan: Right ICA mobile thrombus. Patient refusing CTA of the neck. Medical noncompliance. ? Related to his depression. The risks were explained to the patient including stroke, paralysis and . Patient voiced understanding. Patient states that he needs to get home to his . Patient with considerations and to decide regarding AMA discharge. Major depression. Psychiatry following. Syncope. Echocardiogram revealed LVH and an EF of 55%. Patient with abnormal left ventricular diastolic filling consistent with impaired relaxation. Unintentional weight loss Right inguinal hernia. Patient complaining of right groin pain yesterday. DVT prophylaxis. Continue Lovenox. History Interval history: Patient with carotid Doppler that revealed right ICA multiple thrombus. I discussed the case with Dr. Metz. The patient refused heparin and CTA of the neck for further evaluation. The risks were explained to the patient including stroke, paralysis and . Patient voiced understanding. Hospitalist Physical - Constitutional Vitals: Temp Pulse Resp BP Pulse Ox 98.5 F 78 14 144/99 99 07/04/16 10:35 07/04/16 10:35 07/04/16 10:35 07/04/16 10:35 07/04/16 10:35 General appearance: Present: no acute distress, well-nourished, other ( uncooperative and not talkative.) - EENT Eyes: Present: PERRL, EOM intact ENT: hearing intact, clear oral mucosa, dentition normal - Neck Neck: Present: supple, normal ROM - Respiratory Respiratory effort: normal Respiratory: bilateral: CTA - Cardiovascular Rhythm: regular Heart Sounds: Present: S1 & S2. Absent: gallop, rub - Extremities Extremities: no ischemia, No edema, Full ROM - Abdominal General gastrointestinal: soft, non-tender, non-distended, normal bowel sounds - Integumentary Integumentary: Present: clear, warm, dry - Neurologic Neurologic: CNII-XII intact, moves all extremities Results - Labs CBC & Chem 7: 07/04/16 07:01 07/03/16 08:18 Labs: Laboratory Last Values WBC 9.6 K/mm3 (4.5-11.0) 07/03/16 08:18 RBC 5.42 M/mm3 (3.65-5.03) H 07/03/16 08:18 Hgb 15.5 gm/dl (11.8-15.2) H 07/04/16 07:01 Hct 43.9 % (35.5-45.6) 07/04/16 07:01 MCV 88 fl (84-94) 07/03/16 08:18 MCH 30 pg (28-32) 07/03/16 08:18 MCHC 35 % (32-34) H 07/03/16 08:18 RDW 12.9 % (13.2-15.2) L 07/03/16 08:18 Plt Count 179 K/mm3 (140-440) 07/04/16 07:01 Lymph % (Auto) 16.0 % (13.4-35.0) 07/03/16 08:18 [place] % (Auto) 7.8 % (0.0-7.3) H 07/03/16 08:18 Eos % (Auto) 0.5 % (0.0-4.3) 07/03/16 08:18 Baso % (Auto) 0.2 % (0.0-1.8) 07/03/16 08:18 Lymph # 1.5 K/mm3 (1.2-5.4) 07/03/16 08:18 [place] # 0.8 K/mm3 (0.0-0.8) 07/03/16 08:18 Eos # 0.0 K/mm3 (0.0-0.4) 07/03/16 08:18 Baso # 0.0 K/mm3 (0.0-0.1) 07/03/16 08:18 Seg Neutrophils % 75.5 % (40.0-70.0) H 07/03/16 08:18 Seg Neutrophils # 7.3 K/mm3 (1.8-7.7) 07/03/16 08:18 PT 13.9 Sec. (12.2-14.9) 07/02/16 13:44 INR 1.08 (0.87-1.13) 07/02/16 13:44 APTT 26.5 Sec. (24.2-36.6) 07/02/16 13:44 Sodium 137 mmol/L (137-145) 07/03/16 08:18 Potassium 3.8 mmol/L (3.6-5.0) 07/03/16 08:18 Chloride 98.6 mmol/L (98-107) 07/03/16 08:18 Carbon Dioxide 22 mmol/L (22-30) 07/03/16 08:18 Anion Gap 20 mmol/L 07/03/16 08:18 BUN 27 mg/dL (9-20) H 07/03/16 08:18 Creatinine 0.5 mg/dL (0.8-1.5) L 07/03/16 08:18 Estimated GFR > 60 ml/min 07/03/16 08:18 BUN/Creatinine Ratio 54.00 % 07/03/16 08:18 Glucose 133 mg/dL (75-100) H 07/03/16 08:18 POC Glucose 122 (70-105) H 07/01/16 08:38 Calcium 9.7 mg/dL (8.4-10.2) 07/03/16 08:18 Total Bilirubin 1.30 mg/dL (0.1-1.2) H 07/01/16 07:08 AST 18 units/L (5-40) 07/01/16 07:08 ALT 35 units/L (7-56) 07/01/16 07:08 Alkaline Phosphatase 100 units/L (35-129) 07/01/16 07:08 Total Creatine Kinase 44 units/L (55-170) L 07/01/16 07:08 CK-MB (CK-2) 2.9 ng/mL (0.0-4.0) 07/01/16 07:08 CK-MB (CK-2) Rel Index 6.5 (0-4) H 07/01/16 07:08 Troponin T < 0.010 ng/mL (0.00-0.029) 07/01/16 07:08 Total Protein 6.6 g/dL (6.3-8.2) 07/01/16 07:08 Albumin 3.7 g/dL (3.9-5) L 07/01/16 07:08 Albumin/Globulin Ratio 1.3 % 07/01/16 07:08 TSH < 0.005 mlU/mL (0.270-4.200) L 07/01/16 07:08
--- NOTE | 2016-07-04 14:24 | Progress Note ---
Subjective - Reason for Consult Consult date: 07/04/16 Reason for consult: Psychiatry Follow-up - Chief Complaint Chief complaint: "Worried" 61 year old male seen on the medical floor. Psychiatry was consulted after patient refused potentially life saving treatment. He was admitted for syncope and hyponatremia. Recent 20lbs weight loss. He declined blood thinners when there was a possibility of ICA thrombus. He is minimally cooperative on interview. There was concern with a language barrier. An stone derrickman and rigger via the language line was used. He did not answer most questions. He had his head down and picked at his fingers and toenails repeatedly. He appeared diaphoretic and pale as this behavior continued. It appeared to be a panic attack. TSH is 0.005. He admits to severe depression and worry that something is wrong with him. He did not answer questions pertaining to suicidality and homicidality. He did not answer questions regarding hallucinations. He admitted that thoughts were not coming to his mind easily. Mental Status Exam - Vital signs Last Vital Signs Temp 98.5 F 07/04/16 10:35 Pulse 78 07/04/16 10:35 Resp 14 07/04/16 10:35 BP 144/99 07/04/16 10:35 Pulse Ox 99 07/04/16 10:35
--- NOTE | 2016-07-04 14:29 | Progress Note ---
Subjective - Reason for Consult Consult date: 07/04/16 Reason for consult: Psychiatry Follow-up - Chief Complaint Chief complaint: "I am better" 61 year old male seen on the medical floor. Psychiatry was consulted after patient refused potentially life saving treatment. Today patient is calm and cooperative during assessment. I have treated this patient in the past. His biggest concern is the health of his . Per the patient, she has a "brain tumor." He stated that his nephew resides with them and helps with chores around the house. He state that his nephew and will be visiting him today. During our conversation patient ambulated to the restroom without any assistance. No syncope symptoms noted. He denies SI/HI's, AVH's, poor appetite, sleep disturbance or depression symptoms. He stated that he just worry "a lot." Patient denies any side effects from psy medications. Mental Status Exam - Vital signs Last Vital Signs Temp 98.5 F 07/04/16 10:35 Pulse 78 07/04/16 10:35 Resp 14 07/04/16 10:35 BP 144/99 07/04/16 10:35 Pulse Ox 99 07/04/16 10:35 - Exam Narrative exam: MSE: Appearance: cooperative Behavior: good eye contact Speech: regular rate and tone Mood: "I am worried, but okay" Affect: congruent to mood Thought Process: linear Thought Content: denies SI/HI's and AVH's Motor Activity: ambulatory Cognition: a/ox 3 Insight: fair Judgment: fair Assessment and Plan Impression: 61 year old male seen on the medical floor. Psychiatry was consulted after patient refused potentially life saving treatment. Today patient is calm and cooperative during assessment. I have treated this patient in the past. His biggest concern is the health of his . Per the patient, she has a "brain tumor." He stated that his nephew resides with them and helps with chores around the house. He is looking forward seeing his family later today. No acute safety concerns on assessment. TSH 0.005. Recommendation/Plan: Continue Klonopin 0.5mg bid for anxiety-to be used short term and Paxil 10 mg PO HS for anxiety/depression. Hospitalist to address thyroid. Discussed possible suidality and medication induced rena reference Paxil.
[2016-07-04] MEDS: PAXIL PO SCH (22:21)
[2016-07-05] MEDS: LOVENOX SUB-Q SCH (09:51)
[2016-07-05] MEDS ORDERED: CEPHULAC PO ONE (12:30)
--- NOTE | 2016-07-05 15:23 | Vascular Lab Report ---
CAROTID DUPLEX STUDY: RIGHT PSVEDV CCA PROX: [id number] CCA DIST: 8832 ICA PROX: 7318 ICA MID: 6128 ICA DIST: 5629 ECA: 9835 VERT: 43 13 LEFT PSVEDV CCA PROX:[id number] CCA DIST: 8924 ICA PROX: 8419 ICA MID: 5924 ICA DIST: 5823 ECA: 7611` VERT: 57 17 REASON FOR EXAM: Syncope. COMMENTS ON THE RIGHT: Doppler frequency analysis is consistent with 16 to 49 percent diameter reduction of the internal carotid artery. A structure appears thrombosed that is mobile was seen in the carotid bulb extending into the ICA. The common carotid artery is patent. The external carotid artery is patent. The vertebral artery has antegrade flow. COMMENTS ON THE LEFT: Doppler frequency analysis is consistent with 16 to 49 percent diameter reduction of the internal carotid artery. Minimal amount of plaque is seen. The common carotid artery is patent. The external carotid artery is patent. The vertebral artery has antegrade flow. IMPRESSION: Mobile thrombus is appearing in the right internal carotid artery. This may represent a stroke risk. Less than 50% diameter reduction in the internal carotid arteries bilaterally. Clinical correlation recommended
--- NOTE | 2016-07-05 15:38 | Progress Note ---
Subjective Date of service: 07/05/16 Interval history: Assessment and plan: Right ICA mobile thrombus. Patient refused CTA of the neck. Reviewed the right carotid artery Doppler. No evidence of any thrombus Medical noncompliance. ? Related to his depression. The risks were explained to the patient including stroke, paralysis and . Patient voiced understanding. Patient states that he needs to get home to his . Patient with considerations and to decide regarding AMA discharge. Major depression. Psychiatry following. Continue present medications. He appears to be fairly stable. Psychiatry note reviewed Syncope. Echocardiogram revealed LVH and an EF of 55%. Patient with abnormal left ventricular diastolic filling consistent with impaired relaxation. Unintentional weight loss : His TSH is severely low. Likely his weight loss is secondary to hyperthyroidism. We will order T4 and total T3. Start on empiric beta [place] but is moderate tachycardia. She is diagnosed with hyperthyroidism we will start the patient on methimazole and outpatient follow-up for radioactive iodine therapy DVT prophylaxis. Continue Lovenox. Constipation: Started on lactulose Patient is awake and alert Complains of severe constipation He was straining in the restroom when I came earlier He says he is here for depression Denies any suicidal ideation He denies any chest pain or shortness of breath Objective - Constitutional Vitals: Vital Signs - 12hr 07/05/16 07/05/16 04:38 07:56 Temperature 97.8 F Pulse Rate 114 H Pulse Rate [ 123 H Right Radial] Respiratory 18 Rate Blood Pressure 137/101 [Right Radial Artery] O2 Sat by Pulse 92 Oximetry General appearance: Present: no acute distress - EENT Eyes: PERRL, EOM intact ENT: hearing intact, clear oral mucosa, no thrush - Neck Neck: supple, normal ROM - Respiratory Respiratory effort: normal Respiratory: bilateral: CTA - Cardiovascular Rhythm: regular Heart Sounds: Present: S1 & S2 Extremities: No edema - Gastrointestinal General gastrointestinal: Present: soft, non-tender. Absent: hepatomegaly, splenomegaly Rectal Exam: deferred - Integumentary Integumentary: clear - Musculoskeletal Musculoskeletal: strength equal bilaterally - Neurologic Neurologic: CNII-XII intact, no focal deficits - Psychiatric Psychiatric: appropriate mood/affect, cooperative - Labs CBC & Chem 7: 07/04/16 07:01 07/03/16 08:18
[2016-07-05] MEDS: LOPRESSOR PO SCH ×2 (16:04→22:27)
--- NOTE | 2016-07-05 19:10 | Progress Note ---
Subjective - Reason for Consult Consult date: 07/05/16 Reason for consult: psychiatric follow up - Chief Complaint Chief complaint: "I am ok" 61 year old male seen on the medical floor. Psychiatry was consulted after patient refused potentially life saving treatment. Today patient is calm and cooperative during assessment. He states he worries about his and is depressed. He otherwise denies SI. There are no acute safety concerns. Currently he reports no side effects to medications recently added for anxiety & depression Mental Status Exam - Vital signs Last Vital Signs Temp 97.4 F L 07/05/16 16:05 Pulse 106 H 07/05/16 16:05 Resp 20 07/05/16 16:05 BP 149/105 07/05/16 16:05 Pulse Ox 100 07/05/16 16:05 - Exam Narrative exam: MSE: Appearance: cooperative Behavior: good eye contact Speech: regular rate and tone Mood: anxious and depressed Affect: congruent to mood Thought Process: linear Thought Content: denies SI/HI's and AVH's Motor Activity: ambulatory Cognition: a/ox 3 Insight: fair Judgment: fair Assessment and Plan Impression: 61 year old male seen on the medical floor. Psychiatry was consulted after patient refused potentially life saving treatment. Today patient is calm and cooperative during assessment. He states he worries about his and is depressed. He otherwise denies SI. There are no acute safety concerns. Currently he reports no side effects to medications recently added for anxiety & depression MDD anxiety d/o unspec. Recommendation/Plan: Continue Klonopin 0.5mg bid for anxiety-to be used short term and Paxil 10 mg PO HS for anxiety/depression. Hospitalist to address thyroid. - Patient Problems (1) Major depression Current Visit: Yes Status: Acute Qualifiers: Major depression recurrence: M Active/Remission status: A Major depression episode severity: M Psychotic features: P
[2016-07-05] MEDS: PAXIL PO SCH (22:27)
[2016-07-06] MEDS: CEPHULAC PO SCH (10:57)
[2016-07-06] MEDS: LOVENOX SUB-Q SCH (10:58)
[2016-07-06] MEDS: LOPRESSOR PO SCH ×2 (10:59→21:56)
--- NOTE | 2016-07-06 14:07 | Progress Note ---
Assessment and Plan Assessment and plan: Right ICA mobile thrombus. Patient refusing CTA of the neck. Medical noncompliance. ? Related to his depression. The risks were explained to the patient including stroke, paralysis and . Patient voiced understanding. Major depression. Psychiatry following. Continue Klonopin 0.5 mg twice a day and Paxil at bedtime.. Syncope. Echocardiogram revealed LVH and an EF of 55%. Patient with abnormal left ventricular diastolic filling consistent with impaired relaxation. Hyperthyroidism. Patient will be started on methimazole. Patient to have outpatient follow-up for radioactive iodine therapy. Unintentional weight loss. Etiology likely secondary to hyperthyroidism. Right inguinal hernia. Stable. DVT prophylaxis. Continue Lovenox. History Interval history: Patient with carotid Doppler that revealed right ICA multiple thrombus. I discussed the case with Dr. Metz. The patient refused heparin and CTA of the neck for further evaluation. The risks were explained to the patient including stroke, paralysis and . Patient voiced understanding. Hospitalist Physical - Constitutional Vitals: Temp Pulse Resp BP Pulse Ox 98.7 F 80 14 132/85 99 07/06/16 10:20 07/06/16 10:59 07/06/16 10:20 07/06/16 10:59 07/06/16 10:20 General appearance: Present: no acute distress - EENT Eyes: Present: PERRL, EOM intact ENT: hearing intact, clear oral mucosa, dentition normal - Neck Neck: Present: supple, normal ROM - Respiratory Respiratory effort: normal Respiratory: bilateral: CTA - Cardiovascular Rhythm: regular Heart Sounds: Present: S1 & S2. Absent: gallop, rub - Extremities Extremities: no ischemia, No edema, Full ROM - Abdominal General gastrointestinal: soft, non-tender, non-distended, normal bowel sounds - Integumentary Integumentary: Present: clear, warm, dry - Neurologic Neurologic: CNII-XII intact, moves all extremities Results - Labs CBC & Chem 7: 07/04/16 07:01 07/03/16 08:18 Labs: Laboratory Last Values WBC 9.6 K/mm3 (4.5-11.0) 07/03/16 08:18 RBC 5.42 M/mm3 (3.65-5.03) H 07/03/16 08:18 Hgb 15.5 gm/dl (11.8-15.2) H 07/04/16 07:01 Hct 43.9 % (35.5-45.6) 07/04/16 07:01 MCV 88 fl (84-94) 07/03/16 08:18 MCH 30 pg (28-32) 07/03/16 08:18 MCHC 35 % (32-34) H 07/03/16 08:18 RDW 12.9 % (13.2-15.2) L 07/03/16 08:18 Plt Count 179 K/mm3 (140-440) 07/04/16 07:01 Lymph % (Auto) 16.0 % (13.4-35.0) 07/03/16 08:18 [place] % (Auto) 7.8 % (0.0-7.3) H 07/03/16 08:18 Eos % (Auto) 0.5 % (0.0-4.3) 07/03/16 08:18 Baso % (Auto) 0.2 % (0.0-1.8) 07/03/16 08:18 Lymph # 1.5 K/mm3 (1.2-5.4) 07/03/16 08:18 [place] # 0.8 K/mm3 (0.0-0.8) 07/03/16 08:18 Eos # 0.0 K/mm3 (0.0-0.4) 07/03/16 08:18 Baso # 0.0 K/mm3 (0.0-0.1) 07/03/16 08:18 Seg Neutrophils % 75.5 % (40.0-70.0) H 07/03/16 08:18 Seg Neutrophils # 7.3 K/mm3 (1.8-7.7) 07/03/16 08:18 PT 13.9 Sec. (12.2-14.9) 07/02/16 13:44 INR 1.08 (0.87-1.13) 07/02/16 13:44 APTT 26.5 Sec. (24.2-36.6) 07/02/16 13:44 Sodium 137 mmol/L (137-145) 07/03/16 08:18 Potassium 3.8 mmol/L (3.6-5.0) 07/03/16 08:18 Chloride 98.6 mmol/L (98-107) 07/03/16 08:18 Carbon Dioxide 22 mmol/L (22-30) 07/03/16 08:18 Anion Gap 20 mmol/L 07/03/16 08:18 BUN 27 mg/dL (9-20) H 07/03/16 08:18 Creatinine 0.5 mg/dL (0.8-1.5) L 07/03/16 08:18 Estimated GFR > 60 ml/min 07/03/16 08:18 BUN/Creatinine Ratio 54.00 % 07/03/16 08:18 Glucose 133 mg/dL (75-100) H 07/03/16 08:18 POC Glucose 122 (70-105) H 07/01/16 08:38 Calcium 9.7 mg/dL (8.4-10.2) 07/03/16 08:18 Total Bilirubin 1.30 mg/dL (0.1-1.2) H 07/01/16 07:08 AST 18 units/L (5-40) 07/01/16 07:08 ALT 35 units/L (7-56) 07/01/16 07:08 Alkaline Phosphatase 100 units/L (35-129) 07/01/16 07:08 Total Creatine Kinase 44 units/L (55-170) L 07/01/16 07:08 CK-MB (CK-2) 2.9 ng/mL (0.0-4.0) 07/01/16 07:08 CK-MB (CK-2) Rel Index 6.5 (0-4) H 07/01/16 07:08 Troponin T < 0.010 ng/mL (0.00-0.029) 07/01/16 07:08 Total Protein 6.6 g/dL (6.3-8.2) 07/01/16 07:08 Albumin 3.7 g/dL (3.9-5) L 07/01/16 07:08 Albumin/Globulin Ratio 1.3 % 07/01/16 07:08 TSH < 0.005 mlU/mL (0.270-4.200) L 07/01/16 07:08 Thyroxine (T4) 13.5 ug/dL (4.0-12.0) H 07/05/16 21:14
[2016-07-06 14:55] LABS: Hemoglobin 15.1 gm/dl (11.8-15.2)
[2016-07-06 15:12] LABS: Anion Gap 16 mmol/L; Blood Urea Nitrogen 16 mg/dL (9-20); Calcium 9.1 mg/dL (8.4-10.2); Carbon Dioxide 26 mmol/L (22-30); Chloride 102.8 mmol/L (98-107); Glucose 98 mg/dL (75-100); Potassium 4.5 mmol/L (3.6-5.0); Sodium 140 mmol/L (137-145)
[2016-07-06] MEDS: TAPAZOLE PO SCH (21:55)
[2016-07-06] MEDS: PAXIL PO SCH (21:56)
[2016-07-07] MEDS: TAPAZOLE PO SCH ×3 (05:44→21:45)
[2016-07-07 08:41] LABS: Basophils % (Auto) 0.2 % (0.0-1.8); Eosinophils % (Auto) 1.2 % (0.0-4.3); Hematocrit 43.1 % (35.5-45.6); Mean Corpuscular HGB Conc 35 % (32-34); Mean Corpuscular Hemoglobin 31 pg (28-32); Mean Corpuscular Volume 88 fl (84-94); Platelet Count 187 K/mm3 (140-440); Red Blood Count 4.88 M/mm3 (3.65-5.03); Red Cell Distribution Width 12.7 % (13.2-15.2); White Blood Count 7.3 K/mm3 (4.5-11.0)
[2016-07-07 09:04] LABS: Anion Gap 15 mmol/L; BUN/Creatinine Ratio 33.33; Blood Urea Nitrogen 20 mg/dL (9-20); Calcium 9.2 mg/dL (8.4-10.2); Carbon Dioxide 27 mmol/L (22-30); Chloride 101.8 mmol/L (98-107); Glucose 114 mg/dL (75-100); Potassium 4.2 mmol/L (3.6-5.0); Sodium 140 mmol/L (137-145)
[2016-07-07] MEDS: LOPRESSOR PO SCH ×2 (09:07→21:44)
[2016-07-07] MEDS: CEPHULAC PO SCH (09:07)
[2016-07-07] MEDS: LOVENOX SUB-Q SCH (09:08)
--- NOTE | 2016-07-07 10:53 | Progress Note ---
Assessment and Plan Assessment and plan: Right ICA mobile thrombus. CTA of the neck. Medical noncompliance. ? Related to his depression. The risks were explained to the patient including stroke, paralysis and . Patient voiced understanding. He reports that he is now amenable to CT of the neck. Major depression. Psychiatry following. Continue Klonopin 0.5 mg twice a day and Paxil at bedtime. Syncope. Echocardiogram revealed LVH and an EF of 55%. Patient with abnormal left ventricular diastolic filling consistent with impaired relaxation. Hyperthyroidism. Patient will be started on methimazole. Patient to have outpatient follow-up for radioactive iodine therapy. Unintentional weight loss. Etiology likely secondary to hyperthyroidism. Right inguinal hernia. Stable. DVT prophylaxis. Continue Lovenox. History Interval history: Patient with carotid Doppler that revealed right ICA multiple thrombus. I discussed the case with Dr. Metz. The patient initially refused heparin and CTA of the neck for further evaluation. The risks were explained to the patient including stroke, paralysis and . Patient voiced understanding. Patient now reports that he will undergo CT scan of the neck. Hospitalist Physical - Constitutional Vitals: Temp Pulse Resp BP Pulse Ox 98.1 F 77 20 118/79 100 07/07/16 03:20 07/07/16 09:07 07/07/16 03:20 07/07/16 09:07 07/07/16 03:20 General appearance: Present: no acute distress - EENT Eyes: Present: PERRL, EOM intact ENT: hearing intact, clear oral mucosa, dentition normal - Neck Neck: Present: supple, normal ROM - Respiratory Respiratory effort: normal Respiratory: bilateral: CTA - Cardiovascular Rhythm: regular Heart Sounds: Present: S1 & S2. Absent: gallop, rub - Extremities Extremities: no ischemia, No edema, Full ROM - Abdominal General gastrointestinal: soft, non-tender, non-distended, normal bowel sounds - Integumentary Integumentary: Present: clear, warm, dry - Neurologic Neurologic: CNII-XII intact, moves all extremities Results - Labs CBC & Chem 7: 07/07/16 08:01 07/07/16 08:01 Labs: Laboratory Last Values WBC 7.3 K/mm3 (4.5-11.0) 07/07/16 08:01 RBC 4.88 M/mm3 (3.65-5.03) 07/07/16 08:01 Hgb 15.0 gm/dl (11.8-15.2) 07/07/16 08:01 Hct 43.1 % (35.5-45.6) 07/07/16 08:01 MCV 88 fl (84-94) 07/07/16 08:01 MCH 31 pg (28-32) 07/07/16 08:01 MCHC 35 % (32-34) H 07/07/16 08:01 RDW 12.7 % (13.2-15.2) L 07/07/16 08:01 Plt Count 187 K/mm3 (140-440) 07/07/16 08:01 Lymph % (Auto) 21.1 % (13.4-35.0) 07/07/16 08:01 [place] % (Auto) 10.0 % (0.0-7.3) H 07/07/16 08:01 Eos % (Auto) 1.2 % (0.0-4.3) 07/07/16 08:01 Baso % (Auto) 0.2 % (0.0-1.8) 07/07/16 08:01 Lymph # 1.5 K/mm3 (1.2-5.4) 07/07/16 08:01 [place] # 0.7 K/mm3 (0.0-0.8) 07/07/16 08:01 Eos # 0.1 K/mm3 (0.0-0.4) 07/07/16 08:01 Baso # 0.0 K/mm3 (0.0-0.1) 07/07/16 08:01 Seg Neutrophils % 67.5 % (40.0-70.0) 07/07/16 08:01 Seg Neutrophils # 4.9 K/mm3 (1.8-7.7) 07/07/16 08:01 PT 13.9 Sec. (12.2-14.9) 07/02/16 13:44 INR 1.08 (0.87-1.13) 07/02/16 13:44 APTT 26.5 Sec. (24.2-36.6) 07/02/16 13:44 Sodium 140 mmol/L (137-145) 07/07/16 08:01 Potassium 4.2 mmol/L (3.6-5.0) 07/07/16 08:01 Chloride 101.8 mmol/L (98-107) 07/07/16 08:01 Carbon Dioxide 27 mmol/L (22-30) 07/07/16 08:01 Anion Gap 15 mmol/L 07/07/16 08:01 BUN 20 mg/dL (9-20) 07/07/16 08:01 Creatinine 0.6 mg/dL (0.8-1.5) L 07/07/16 08:01 Estimated GFR > 60 ml/min 07/07/16 08:01 BUN/Creatinine Ratio 33.33 % 07/07/16 08:01 Glucose 114 mg/dL (75-100) H 07/07/16 08:01 POC Glucose 122 (70-105) H 07/01/16 08:38 Calcium 9.2 mg/dL (8.4-10.2) 07/07/16 08:01 Total Bilirubin 1.30 mg/dL (0.1-1.2) H 07/01/16 07:08 AST 18 units/L (5-40) 07/01/16 07:08 ALT 35 units/L (7-56) 07/01/16 07:08 Alkaline Phosphatase 100 units/L (35-129) 07/01/16 07:08 Total Creatine Kinase 44 units/L (55-170) L 07/01/16 07:08 CK-MB (CK-2) 2.9 ng/mL (0.0-4.0) 07/01/16 07:08 CK-MB (CK-2) Rel Index 6.5 (0-4) H 07/01/16 07:08 Troponin T < 0.010 ng/mL (0.00-0.029) 07/01/16 07:08 Total Protein 6.6 g/dL (6.3-8.2) 07/01/16 07:08 Albumin 3.7 g/dL (3.9-5) L 07/01/16 07:08 Albumin/Globulin Ratio 1.3 % 07/01/16 07:08 TSH < 0.005 mlU/mL (0.270-4.200) L 07/01/16 07:08 Thyroxine (T4) 13.5 ug/dL (4.0-12.0) H 07/05/16 21:14
[2016-07-07] MEDS ORDERED: NACL ONE ×2 (10:58→11:04)
[2016-07-07 11:54] LABS: Hematocrit 45.6 % (35.5-45.6); Hemoglobin 15.8 gm/dl (11.8-15.2)
[2016-07-07 12:04] LABS: INR 1.07 (0.87-1.13)
[2016-07-07 12:05] LABS: Partial Thromboplastin Time 26.2 Sec. (24.2-36.6)
[2016-07-07] MEDS: HEPARIN/ 0.45% NACL-25,000 UNIT/500 ML 25,000 UNIT/500 ML BAG IV SCH (18:29)
[2016-07-07] MEDS: PAXIL PO SCH (21:44)
[2016-07-08 03:21] LABS: Hematocrit 45.2 % (35.5-45.6); Hemoglobin 15.2 gm/dl (11.8-15.2)
[2016-07-08] MEDS: TAPAZOLE PO SCH ×3 (06:18→22:35)
[2016-07-08] MEDS: CEPHULAC PO SCH (10:59)
[2016-07-08] MEDS: LOPRESSOR PO SCH ×2 (11:00→22:34)
--- NOTE | 2016-07-08 13:41 | Progress Note ---
Assessment and Plan Assessment and plan: Right ICA mobile thrombus. CTA of the neck. Medical noncompliance. ? Related to his depression. The risks were explained to the patient including stroke, paralysis and . Patient voiced understanding. He reported yesterday that he is now amenable to CT of the neck. Major depression. Psychiatry following. Continue Klonopin 0.5 mg twice a day and Paxil at bedtime. Syncope. Echocardiogram revealed LVH and an EF of 55%. Patient with abnormal left ventricular diastolic filling consistent with impaired relaxation. Hyperthyroidism. Patient will be started on methimazole. Patient to have outpatient follow-up for radioactive iodine therapy. Unintentional weight loss. Etiology likely secondary to hyperthyroidism. Right inguinal hernia. Stable. Dysuria. Check urinalysis. DVT prophylaxis. Continue Lovenox. History Interval history: Patient with carotid Doppler that revealed right ICA multiple thrombus. I discussed the case with Dr. Metz. The patient initially refused heparin and CTA of the neck for further evaluation. The risks were explained to the patient including stroke, paralysis and . Patient voiced understanding. Patient reported yesterday that he will undergo CT scan of the neck. Patient complained of dysuria this morning. Hospitalist Physical - Constitutional Vitals: Temp Pulse Resp BP Pulse Ox 97.7 F 94 H 20 103/63 98 07/08/16 09:08 07/08/16 11:00 07/08/16 09:08 07/08/16 11:00 07/08/16 09:08 General appearance: Present: no acute distress - EENT Eyes: Present: PERRL, EOM intact ENT: hearing intact, clear oral mucosa, dentition normal - Neck Neck: Present: supple, normal ROM - Respiratory Respiratory effort: normal Respiratory: bilateral: CTA - Cardiovascular Rhythm: regular Heart Sounds: Present: S1 & S2. Absent: gallop, rub - Extremities Extremities: no ischemia, No edema, Full ROM - Abdominal General gastrointestinal: soft, non-tender, non-distended, normal bowel sounds - Integumentary Integumentary: Present: clear, warm, dry - Neurologic Neurologic: CNII-XII intact, moves all extremities Results - Labs CBC & Chem 7: 07/08/16 02:41 07/07/16 08:01 Labs: Laboratory Last Values WBC 7.3 K/mm3 (4.5-11.0) 07/07/16 08:01 RBC 4.88 M/mm3 (3.65-5.03) 07/07/16 08:01 Hgb 15.2 gm/dl (11.8-15.2) 07/08/16 02:41 Hct 45.2 % (35.5-45.6) 07/08/16 02:41 MCV 88 fl (84-94) 07/07/16 08:01 MCH 31 pg (28-32) 07/07/16 08:01 MCHC 35 % (32-34) H 07/07/16 08:01 RDW 12.7 % (13.2-15.2) L 07/07/16 08:01 Plt Count 182 K/mm3 (140-440) 07/08/16 02:41 Lymph % (Auto) 21.1 % (13.4-35.0) 07/07/16 08:01 War[place] % (Auto) 10.0 % (0.0-7.3) H 07/07/16 08:01 Eos % (Auto) 1.2 % (0.0-4.3) 07/07/16 08:01 Baso % (Auto) 0.2 % (0.0-1.8) 07/07/16 08:01 Lymph # 1.5 K/mm3 (1.2-5.4) 07/07/16 08:01 Warrick # 0.7 K/mm3 (0.0-0.8) 07/07/16 08:01 Eos # 0.1 K/mm3 (0.0-0.4) 07/07/16 08:01 Baso # 0.0 K/mm3 (0.0-0.1) 07/07/16 08:01 Seg Neutrophils % 67.5 % (40.0-70.0) 07/07/16 08:01 Seg Neutrophils # 4.9 K/mm3 (1.8-7.7) 07/07/16 08:01 PT 13.8 Sec. (12.2-14.9) 07/07/16 11:01 INR 1.07 (0.87-1.13) 07/07/16 11:01 APTT 26.2 Sec. (24.2-36.6) 07/07/16 11:01 Heparin Anti-Xa Level 0.35 U.I./ml (0.3-0.7) 07/08/16 08:12 Sodium 140 mmol/L (137-145) 07/07/16 08:01 Potassium 4.2 mmol/L (3.6-5.0) 07/07/16 08:01 Chloride 101.8 mmol/L (98-107) 07/07/16 08:01 Carbon Dioxide 27 mmol/L (22-30) 07/07/16 08:01 Anion Gap 15 mmol/L 07/07/16 08:01 BUN 20 mg/dL (9-20) 07/07/16 08:01 Creatinine 0.6 mg/dL (0.8-1.5) L 07/07/16 08:01 Estimated GFR > 60 ml/min 07/07/16 08:01 BUN/Creatinine Ratio 33.33 % 07/07/16 08:01 Glucose 114 mg/dL (75-100) H 07/07/16 08:01 POC Glucose 122 (70-105) H 07/01/16 08:38 Calcium 9.2 mg/dL (8.4-10.2) 07/07/16 08:01 Total Bilirubin 1.30 mg/dL (0.1-1.2) H 07/01/16 07:08 AST 18 units/L (5-40) 07/01/16 07:08 ALT 35 units/L (7-56) 07/01/16 07:08 Alkaline Phosphatase 100 units/L (35-129) 07/01/16 07:08 Total Creatine Kinase 44 units/L (55-170) L 07/01/16 07:08 CK-MB (CK-2) 2.9 ng/mL (0.0-4.0) 07/01/16 07:08 CK-MB (CK-2) Rel Index 6.5 (0-4) H 07/01/16 07:08 Troponin T < 0.010 ng/mL (0.00-0.029) 07/01/16 07:08 Total Protein 6.6 g/dL (6.3-8.2) 07/01/16 07:08 Albumin 3.7 g/dL (3.9-5) L 07/01/16 07:08 Albumin/Globulin Ratio 1.3 % 07/01/16 07:08 TSH < 0.005 mlU/mL (0.270-4.200) L 07/01/16 07:08 Thyroxine (T4) 13.5 ug/dL (4.0-12.0) H 07/05/16 21:14 Free T3 Index 7.3 pg/mL (2.3-4.2) H 07/05/16 21:14
[2016-07-08] MEDS: PAXIL PO SCH (22:34)
[2016-07-08] MEDS: HEPARIN/ 0.45% NACL-25,000 UNIT/500 ML 25,000 UNIT/500 ML BAG IV SCH (22:36)
[2016-07-09] MEDS: TAPAZOLE PO SCH ×3 (05:52→22:14)
[2016-07-09 06:01] LABS: Hematocrit 44.7 % (35.5-45.6); Hemoglobin 15.3 gm/dl (11.8-15.2)
--- NOTE | 2016-07-09 09:52 | Progress Note ---
Subjective - Reason for Consult Consult date: 07/09/16 Reason for consult: Psychiatry Follow-up - Chief Complaint Chief complaint: "I feel sad" 61 year old male seen on the medical floor. Psychiatry was consulted after patient refused potentially life saving treatment. Today patient is calm and cooperative during assessment. He stated being "sad" the last couple days because of stressors ( illness, his medical problem, and he can't spend time with his dog.) Patient is aware of the heparin gtt for the thrombus in his neck. He stated, "The medication worries me." He denies SI/HI's, AVH's, sleep disturbance or a poor appetite. He rate his depression 6/10, with 10 being the worse. Patient has an hx of depression and anxiety. Mental Status Exam - Vital signs Last Vital Signs Temp 97.8 F 07/09/16 06:07 Pulse 73 07/09/16 06:07 Resp 20 07/09/16 06:07 BP 115/74 07/09/16 06:07 Pulse Ox 96 07/09/16 06:07 - Exam Narrative exam: MSE: Appearance: cooperative Behavior: poor eye contact Speech: regular rate and tone Mood: "I am worried" Affect: congruent to mood Thought Process: linear Thought Content: denies SI/HI's and AVH's Motor Activity: ambulatory Cognition: a/ox 3 Insight: limited Judgment: fair Assessment and Plan Impression: 61 year old male seen on the medical floor. Psychiatry was consulted after patient refused potentially life saving treatment. Today patient is calm and cooperative during assessment. He stated being "sad" the last couple days because of stressors ( illness, his medical problem, and he can't spend time with his dog.) Heparin gtt for thrombus in his neck. TSH 0.005. Recommendation/Plan: Continue Klonopin 0.5mg BID for anxiety and Increase Paxil to 20 mg PO HS for depression. Hospitalist to address thyroid. Discussed possible suicidality and medication induced rena reference Paxil.
[2016-07-09] MEDS: CEPHULAC PO SCH (10:09)
[2016-07-09] MEDS: LOPRESSOR PO SCH ×2 (10:10→22:18)
[2016-07-09] MEDS ORDERED: NACL ONE (12:45)
[2016-07-09] MEDS ORDERED: ATIVAN IV PRN (18:19)
--- NOTE | 2016-07-09 18:26 | Progress Note ---
Assessment and Plan Assessment and plan: Syncope. Echocardiogram revealed LVH and an EF of 55%. For CTA neck today. Questionable Right ICA mobile thrombus. CTA of the neck ordered, to be done today. Medical noncompliance. The risks were explained to the patient including stroke , paralysis and . Patient voiced understanding. He reported yesterday that he is now amenable to CT of the neck. Major depression. Psychiatry following. Continue Klonopin 0.5 mg twice a day and Paxil at bedtime. Hyperthyroidism. Started on Methimazole. Patient to have outpatient follow-up for radioactive iodine therapy. Unintentional weight loss. Etiology likely secondary to hyperthyroidism. Right inguinal hernia. Stable. DVT prophylaxis. Continue Lovenox. Full code status History Interval history: Patient presented with syncope Hospitalist Physical - Physical exam Narrative exam: Appearance: Not in acute distress, sitting up HEENT: normocephalic, atraumatic Neck : supple, no JVD Lungs: Clear to auscultation bilaterally, no crackles or wheeze Heart : S1 and S2 regular, no murmurs, rubs or gallop Abdomen: soft, non-tender, non-distended, normal bowel sounds Extremities: No edema, no clubbing, no cyanosis Neuro: Awake, alert, moves all extremities - Constitutional Vitals: Temp Pulse Resp BP Pulse Ox 97.0 F L 78 18 117/78 100 07/09/16 13:02 07/09/16 13:02 07/09/16 13:02 07/09/16 13:02 07/09/16 13:02 Results - Labs CBC & Chem 7: 07/09/16 04:45 07/07/16 08:01 Labs: Laboratory Last Values WBC 7.3 K/mm3 (4.5-11.0) 07/07/16 08:01 RBC 4.88 M/mm3 (3.65-5.03) 07/07/16 08:01 Hgb 15.3 gm/dl (11.8-15.2) H 07/09/16 04:45 Hct 44.7 % (35.5-45.6) 07/09/16 04:45 MCV 88 fl (84-94) 07/07/16 08:01 MCH 31 pg (28-32) 07/07/16 08:01 MCHC 35 % (32-34) H 07/07/16 08:01 RDW 12.7 % (13.2-15.2) L 07/07/16 08:01 Plt Count 201 K/mm3 (140-440) 07/09/16 04:45 Lymph % (Auto) 21.1 % (13.4-35.0) 07/07/16 08:01 Izard % (Auto) 10.0 % (0.0-7.3) H 07/07/16 08:01 Eos % (Auto) 1.2 % (0.0-4.3) 07/07/16 08:01 Baso % (Auto) 0.2 % (0.0-1.8) 07/07/16 08:01 Lymph # 1.5 K/mm3 (1.2-5.4) 07/07/16 08:01 Izard # 0.7 K/mm3 (0.0-0.8) 07/07/16 08:01 Eos # 0.1 K/mm3 (0.0-0.4) 07/07/16 08:01 Baso # 0.0 K/mm3 (0.0-0.1) 07/07/16 08:01 Seg Neutrophils % 67.5 % (40.0-70.0) 07/07/16 08:01 Seg Neutrophils # 4.9 K/mm3 (1.8-7.7) 07/07/16 08:01 PT 13.8 Sec. (12.2-14.9) 07/07/16 11:01 INR 1.07 (0.87-1.13) 07/07/16 11:01 APTT 26.2 Sec. (24.2-36.6) 07/07/16 11:01 Heparin Anti-Xa Level 0.31 U.I./ml (0.3-0.7) 07/09/16 04:45 Sodium 140 mmol/L (137-145) 07/07/16 08:01 Potassium 4.2 mmol/L (3.6-5.0) 07/07/16 08:01 Chloride 101.8 mmol/L (98-107) 07/07/16 08:01 Carbon Dioxide 27 mmol/L (22-30) 07/07/16 08:01 Anion Gap 15 mmol/L 07/07/16 08:01 BUN 20 mg/dL (9-20) 07/07/16 08:01 Creatinine 0.6 mg/dL (0.8-1.5) L 07/07/16 08:01 Estimated GFR > 60 ml/min 07/07/16 08:01 BUN/Creatinine Ratio 33.33 % 07/07/16 08:01 Glucose 114 mg/dL (75-100) H 07/07/16 08:01 POC Glucose 122 (70-105) H 07/01/16 08:38 Calcium 9.2 mg/dL (8.4-10.2) 07/07/16 08:01 Total Bilirubin 1.30 mg/dL (0.1-1.2) H 07/01/16 07:08 AST 18 units/L (5-40) 07/01/16 07:08 ALT 35 units/L (7-56) 07/01/16 07:08 Alkaline Phosphatase 100 units/L (35-129) 07/01/16 07:08 Total Creatine Kinase 44 units/L (55-170) L 07/01/16 07:08 CK-MB (CK-2) 2.9 ng/mL (0.0-4.0) 07/01/16 07:08 CK-MB (CK-2) Rel Index 6.5 (0-4) H 07/01/16 07:08 Troponin T < 0.010 ng/mL (0.00-0.029) 07/01/16 07:08 Total Protein 6.6 g/dL (6.3-8.2) 07/01/16 07:08 Albumin 3.7 g/dL (3.9-5) L 07/01/16 07:08 Albumin/Globulin Ratio 1.3 % 07/01/16 07:08 TSH < 0.005 mlU/mL (0.270-4.200) L 07/01/16 07:08 Thyroxine (T4) 13.5 ug/dL (4.0-12.0) H 07/05/16 21:14 Free T3 Index 7.3 pg/mL (2.3-4.2) H 07/05/16 21:14
[2016-07-09] MEDS ORDERED: PAXIL PO SCH (22:00)
[2016-07-10] MEDS: HEPARIN/ 0.45% NACL-25,000 UNIT/500 ML 25,000 UNIT/500 ML BAG IV SCH (00:27)
[2016-07-10 06:02] LABS: Hematocrit 41.3 % (35.5-45.6); Hemoglobin 14.4 gm/dl (11.8-15.2)
--- NOTE | 2016-07-10 08:24 | Cat Scan Report ---
CTA NECK: HISTORY: Right ICA mobile thrombus. TECHNIQUE: Helical CT following IV contrast. Sagittal and coronal reformatted images. 3D volume rendering technique. Stenosis was calculated using NASCET criteria. FINDINGS: The carotid ultrasound performed 07/01/16 was reviewed. The visualized aortic arch, innominate artery and proximal bilateral subclavian arteries are widely patent with less than 20% stenosis. Within the right carotid system, there is no significant atherosclerotic plaques or intimal thickening. The right carotid system is widely patent with less than 20% stenosis. The mobile thrombus projecting into the proximal right ICA is not demonstrated on CTA. Within the left carotid system, there is no significant atherosclerotic plaques or intimal thickening. The left carotid system is widely patent with less than 20% stenosis. The cervical vertebral arteries are widely patent with less than 20% stenosis. The left vertebral artery is dominant. IMPRESSION: Unremarkable CTA of the neck. No hemodynamically significant stenosis is demonstrated. No mobile thrombus in the right carotid system is demonstrated on CTA.
--- NOTE | 2016-07-10 10:48 | Discharge Summary ---
Providers - Providers Date of Admission: 06/30/16 21:28 Date of discharge: 07/10/16 Attending physician: SUSIE HEART 07/02/16 10:23 psychiatry consult [Consult to Mental Health] [CONS] Routine Reason For Exam: depression, pt. refusing treatment Place consult to:: Mental Health Notified:: Anderson STALEY Phone number called:: [phone] Was contact made?: Yes If yes, spoke with:: [facility] Time called:: 10:38 Primary care physician: IC DESIGN ENGINEER Hospitalization Condition: Fair Disposition: DISCHARGED TO HOME OR SELFCARE - Discharge Diagnoses (1) Hyperthyroidism Status: Acute (2) Major depression Status: Acute Qualifiers: Major depression recurrence: M Active/Remission status: A Major depression episode severity: M Psychotic features: P (3) Syncope Status: Acute Qualifiers: Syncope type: S Encounter type: E Exam - Constitutional Vitals: Temp Pulse Resp BP Pulse Ox 98.9 F 88 18 101/70 97 07/10/16 08:00 07/10/16 08:00 07/10/16 08:00 07/10/16 08:00 07/10/16 08:00 Plan Activity: advance as tolerated Diet: low fat Additional Instructions: 1.Follow up with PCP in 1 week. 2.Follow up with Psych in 1 week Follow up with: PRIMARY CAREMD [Primary Care Provider] - 7 Days Forms: AMA Form Prescriptions: clonazePAM [KlonoPIN] 0.5 mg PO BID #60 tablet Methimazole [Tapazole] 5 mg PO Q8HR #90 tablet Metoprolol [Lopressor TAB] 25 mg PO BID #60 tablet PARoxetine [Paxil] 20 mg PO HS #30 tablet
[2016-07-10] MEDS: LOPRESSOR PO SCH (12:59)
[2016-07-10] MEDS: TAPAZOLE PO SCH (12:59)
[2016-07-10] MEDS: CEPHULAC PO SCH (13:58)
[2016-07-10 14:19] VITALS: BP 108/72
--- NOTE | 2016-07-10 16:29 | Progress Note ---
Subjective - Reason for Consult Consult date: 07/10/16 Reason for consult: psychiatric follow up - Chief Complaint Chief complaint: "Worried" 61 year old male seen on the medical floor. Psychiatry was consulted after patient refused potentially life saving treatment. Today patient is calm and cooperative during assessment. He reported being depressed and anxious. He denies SI/HI. No psychotic symptoms. He is otherwise guarded and did not want to speak. Mental Status Exam - Vital signs Last Vital Signs Temp 98.5 F 07/10/16 12:00 Pulse 88 07/10/16 12:59 Resp 18 07/10/16 12:00 BP 108/72 07/10/16 12:00 Pulse Ox 97 07/10/16 08:00 - Exam Narrative exam: MSE: Appearance: cooperative Behavior: good eye contact Speech: regular rate and tone Mood: anxious and depressed Affect: congruent to mood Thought Process: linear Thought Content: denies SI/HI's and AVH's Motor Activity: ambulatory Cognition: a/ox 3 Insight: fair Judgment: fair Assessment and Plan Impression: 61 year old male seen on the medical floor. Psychiatry was consulted after patient refused potentially life saving treatment. He no longer requires that treatment. He denies SI/HI. He does not present with evidence of imminent self harm. He is willing to follow up with outpatient mental health care. MDD anxiety d/o unspec. Recommendation/Plan: Continue Klonopin 0.5mg bid for anxiety-to be used short term and Paxil 20 mg PO HS for anxiety/depression. Outpatient referral will be provided. - Patient Problems (1) Major depression Status: Acute Qualifiers: Major depression recurrence: M Active/Remission status: A Major depression episode severity: M Psychotic features: P
== END 2016-07-10 15:13 | disposition home or self-care (01) | DRG 644 ==
LOC: ED 17:56 → 4A 21:28
PROVIDERS: ADMIT Internal Medicine; ATTEND Internal Medicine
DX: E05.90 Thyrotoxicosis, unspecified without thyrotoxic crisis or storm (principal); E87.1 Hypo-osmolality and hyponatremia; R55 Syncope and collapse; I66.9 Occlusion and stenosis of unspecified cerebral artery; F32.9 Major depressive disorder, single episode, unspecified; K40.90 Unilateral inguinal hernia, without obstruction or gangrene, not specified as recurrent; F41.9 Anxiety disorder, unspecified; Z91.19 Patient's noncompliance with other medical treatment and regimen
CPT/HCPCS: 36415; 70450; 70498; 74176; 78452; 80048; 80053; 82550; 82553; 82962; 84436; 84443; 84481; 84484; 85014; 85018; 85025; 85027; 85049; 85520; 85610; 85730; 93005; 93010; 93017; 93306; 93880; A9502; J1644; J1650; J1885; J2060; J2785; Q9967

== ENCOUNTER 2016-07-27 23:32 | Inpatient (IN) | payer MEDICARE ==
[2016-07-28 00:32] LABS: Eosinophils % (Auto) 1.2 % (0.0-4.3); Hematocrit 41.1 % (35.5-45.6); Hemoglobin 14.4 gm/dl (11.8-15.2); Mean Corpuscular HGB Conc 35 % (32-34); Mean Corpuscular Hemoglobin 31 pg (28-32); Mean Corpuscular Volume 89 fl (84-94); Platelet Count 220 K/mm3 (140-440); Red Blood Count 4.61 M/mm3 (3.65-5.03); Red Cell Distribution Width 12.9 % (13.2-15.2); White Blood Count 7.5 K/mm3 (4.5-11.0)
[2016-07-28 00:43] LABS: INR 1.07 (0.87-1.13)
[2016-07-28 00:54] LABS: Alanine Aminotransferase 36 units/L (7-56); Albumin 3.9 g/dL (3.9-5); Albumin/Globulin Ratio 1.4 %; Alkaline Phosphatase 82 units/L (35-129); Anion Gap 20 mmol/L; Blood Urea Nitrogen 20 mg/dL (9-20); Calcium 9.4 mg/dL (8.4-10.2); Carbon Dioxide 24 mmol/L (22-30); Chloride 101.8 mmol/L (98-107); Glucose 119 mg/dL (75-100); Lipase 51 units/L (13-60); Sodium 142 mmol/L (137-145); Total Protein 6.6 g/dL (6.3-8.2)
[2016-07-28] MEDS ORDERED: MORPHINE IV ONE (03:45)
[2016-07-28] MEDS ORDERED: NACL ONE (04:04)
[2016-07-28] MEDS ORDERED: ATIVAN ONE (04:11)
[2016-07-28] MEDS ORDERED: ATIVAN IV ONE (04:42)
--- NOTE | 2016-07-28 05:36 | Cat Scan Report ---
FINAL REPORT PROCEDURE: CT HEAD/BRAIN WO CON TECHNIQUE: Computerized tomography of the head was performed without contrast material. HISTORY: headache COMPARISON: No prior studies are available for comparison. FINDINGS: Skull and scalp: Normal. Paranasal sinuses: Normal. Ventricles and subarachnoid spaces: There is mild age-appropriate central and cortical atrophy. There is no hydrocephalus or asymmetry. Bony calvarium is intact.. Cerebrum: No evidence of hemorrhage, acute infarction or mass . Cerebellum and brainstem: No evidence of hemorrhage, acute infarction or mass. Vasculature: Normal. Comments: None. IMPRESSION: There is no acute intracranial abnormality.
--- NOTE | 2016-07-28 05:40 | Cat Scan Report ---
FINAL REPORT PROCEDURE: CT ANGIO CHEST TECHNIQUE: Computerized tomographic angiography of the chest was performed after the IV injection of iodinated nonionic contrast including image processing. The image data was postprocessed using 2-dimensional multiplanar reformatted (MPR) and 3-dimensional (MIP and/or volume rendered) techniques. HISTORY: Chest pain COMPARISON: No prior studies are available for comparison. FINDINGS: Heart and pericardium: Normal. Thoracic aorta: Normal. Pulmonary vasculature: Normal. Lymph nodes: No enlarged thoracic lymph nodes. Lungs: Normal. Pleural space: No effusion, thickening, or pneumothorax. Musculoskeletal structures: No significant abnormality. Upper abdominal structures: No significant abnormality. IMPRESSION: There is no pulmonary embolism. There is no thoracic aortic aneurysm or dissection. The lungs are clear. There are no infiltrates.
--- NOTE | 2016-07-28 05:43 | Cat Scan Report ---
FINAL REPORT PROCEDURE: CT ABDOMEN PELVIS W CON TECHNIQUE: Computerized axial tomography of the abdomen and pelvis was performed after the IV injection of iodinated nonionic contrast. HISTORY: Abd pain COMPARISON: No prior studies are available for comparison. FINDINGS: Visualized lower thorax: No significant abnormality. Liver: Normal size and attenuation. Spleen: Normal size and attenuation. Gallbladder and biliary system: Normal. Pancreas: Normal. Adrenals: Normal. Kidneys: Normal. GI tract: There is no bowel obstruction, colitis or enteritis. The appendix is slightly prominent but under 7 millimeters in diameter.. Lymph nodes and mesentery: Normal. Vasculature: Normal. Bladder: Normal. Reproductive organs: Normal. Peritoneum: There is no ascites, free air, abscess or adenopathy.. Musculoskeletal structures: No significant abnormality. Other: There is a small left inguinal hernia containing fat only.. IMPRESSION: There is no bowel obstruction, colitis or enteritis. The appendix is within normal limits.
--- NOTE | 2016-07-28 05:53 | Emergency Department Report ---
HPI - General Chief Complaint: Chest Pain Time Seen by Provider: 07/28/16 03:39 - HPI HPI: This is a 61-year-old male who presents to the emergency department with the complaint of chest pain, shortness of breath, posterior head headache and generalized abdominal pain. He denies any nausea, vomiting, cough, fever. Records show that he has a history of congestive heart failure, diabetes, depression, hyperthyroidism. However at the present time the patient points to his chest, that his abdomen, and then his head and starts grunting. We attempted to use translation to get more information from this patient but he was no more forthcoming when questioned in Afghan. ED Past Medical Hx - Past Medical History Previous Medical History?: Yes Hx Congestive Heart Failure: Yes Hx Diabetes: Yes Hx Psychiatric Treatment: Yes (Depression) Hx COPD: No Additional medical history: hyponatremia - Surgical History Past Surgical History?: Yes Additional Surgical History: Hernia, right leg surgery - Social History Smoking Status: Never Smoker Substance Use Type: None - Medications Home Medications: Home Medications Medication Instructions Recorded Confirmed Last Taken Type Methimazole [Tapazole] 5 mg PO Q8HR #90 tablet 07/10/16 Unknown Rx Metoprolol [Lopressor TAB] 25 mg PO BID #60 tablet 07/10/16 Unknown Rx PARoxetine [Paxil] 20 mg PO HS #30 tablet 07/10/16 Unknown Rx clonazePAM [KlonoPIN] 0.5 mg PO BID #60 tablet 07/10/16 Unknown Rx ED Review of Systems ROS: Stated complaint: CHEST PAIN Other details as noted in HPI Comment: All other systems reviewed and negative Constitutional: denies: chills, fever Eyes: denies: eye pain, eye discharge, vision change ENT: denies: ear pain, throat pain Respiratory: shortness of breath. denies: cough Cardiovascular: chest pain. denies: edema Gastrointestinal: abdominal pain. denies: vomiting Genitourinary: denies: urgency, dysuria Musculoskeletal: denies: back pain, joint swelling, arthralgia Skin: denies: rash, lesions Neurological: headache. denies: numbness Physical Exam - Physical Exam Vital Signs: Vital Signs 07/27/16 07/28/16 23:53 03:58 Temperature 98.0 F Pulse Rate 122 H 91 H Respiratory 20 Rate Blood Pressure 137/95 [Right] O2 Sat by Pulse 98 Oximetry Physical Exam: GENERAL: The patient is well-developed well-nourished. HEENT: Normocephalic. Atraumatic. Extraocular motions are intact. Patient has moist mucous membranes. Pupils equal reactive to light bilateral. NECK: Supple. Trachea is midline. CHEST/LUNGS: Clear to auscultation. There is no respiratory distress noted. HEART/CARDIOVASCULAR: Regular. There is no tachycardia. There is no gallop rub or murmur. ABDOMEN: Abdomen is soft. Generalized tenderness with palpation of the abdomen. No guarding rebound tenderness. Patient has normal bowel sounds. There is no abdominal distention. SKIN: Skin is warm and dry. NEURO: The patient is awake but not answering many questions. He is not cooperative. He is constantly moving around. Withdraws from painful stimuli. MUSCULOSKELETAL: There is no tenderness or deformity. There is no limitation range of motion. There is no evidence of acute injury. ED Course Vital Signs 07/27/16 07/28/16 23:53 03:58 Temperature 98.0 F Pulse Rate 122 H 91 H Respiratory 20 Rate Blood Pressure 137/95 [Right] O2 Sat by Pulse 98 Oximetry ED Medical Decision Making - Lab Data Result diagrams: 07/28/16 00:11 07/28/16 00:11 - EKG Data -: EKG Interpreted by Me EKG shows normal: sinus rhythm, axis, intervals, QRS complexes, ST-T waves Rate: tachycardia (121 bpm) - EKG Data When compared to previous EKG there are: previous EKG unavailable Interpretation: normal EKG (with sinus tachycardia) - Radiology Data Radiology results: report reviewed, image reviewed interpreted by me: Chest x-ray did not show any acute process. Heart is normal shape and size. No effusions. No pneumothorax. No signs of pneumonia seen. CT angiography of the chest does not show any pulmonary embolism or aortic dissection. CT of the head does not show any acute process including no hemorrhage, mass, shift, diffuse edema or skull fracture. CT of the abdomen and pelvis with IV contrast does not show any acute process. - Medical Decision Making 61-year-old male presents to the emergency Department with complaints of headache, chest pain and abdominal pain. At first the patient mostly just grunts and is not cooperative and not forthcoming with information. A CT was done of the head, abdomen and pelvis and a CT angiography of the chest was done. The CT imaging did not show any significant acute process or an etiology of the patient's symptoms. EKG did not show any signs of ST elevation MA. Labs are mostly unremarkable except for a elevated lactic acid level. The patient was given some Ativan and pain medication in order to treat his discomfort as well as get him to stay still for CT imaging. With the patient got back from CAT scan, he was much more lucid and responsive. However given his initial presentation and his complaint of chest pain, he was admitted to hospital for further evaluation and treatment has been accepted for admission by the hospitalist - Differential Diagnosis MA, PE, CVA, sepsis Critical Care Time: No Critical care attestation.: If time is entered above; I have spent that time in minutes in the direct care of this critically ill patient, excluding procedure time. ED Disposition Clinical Impression: Elevated lactic acid level Chest pain Qualifiers: Chest pain type: unspecified Qualified Code(s): R07.9 - Chest pain, unspecified Abdominal pain Qualifiers: Abdominal location: generalized Qualified Code(s): R10.84 - Generalized abdominal pain Headache Qualifiers: Headache type: unspecified Headache chronicity pattern: unspecified pattern Intractability: not intractable Qualified Code(s): R51 - Headache Disposition: DC-09 OP ADMIT IP TO THIS HOSP Is pt being admited?: Yes Condition: Stable
[2016-07-28 07:37] LABS: Urine Drugs of Abuse Note Disclamer
[2016-07-28 07:45] LABS: Bilirubin,Urine NEG (Negative); Blood,Urine MOD (Negative); Ketones,Urine NEG (Negative); Leukocyte Esterase,Urine NEG (Negative); Mucus,Urine FEW /HPF; Nitrite,Urine NEG (Negative); Urobilinogen,Urine < 2.0 mg/dL (<2.0)
[2016-07-28] MEDS ORDERED: TYLENOL PO PRN (08:26)
[2016-07-28] MEDS ORDERED: ZOFRAN IV PRN (08:26)
[2016-07-28] MEDS ORDERED: MORPHINE IV PRN (08:26)
[2016-07-28] MEDS ORDERED: DULCOLAX PR PRN (08:26)
[2016-07-28] MEDS ORDERED: MILK OF MAGNESIA PO PRN (08:26)
[2016-07-28] MEDS ORDERED: SODIUM CHLORIDE FLUSH SYRINGE 10 ML IV PRN (08:34)
[2016-07-28] MEDS ORDERED: D5NS 1,000 ML IV SCH (09:00)
--- NOTE | 2016-07-28 09:51 | XRay Report ---
ROUTINE CHEST, TWO VIEWS: HISTORY: Chest pain, shortness of breath. The trachea, heart, mediastinal contour, lung laird and bony thorax are unremarkable. IMPRESSION: Unremarkable chest x-ray.
[2016-07-28] MEDS ORDERED: LOPRESSOR PO SCH (10:00)
--- NOTE | 2016-07-28 13:52 | History and Physical Report ---
History of Present Illness Date of examination: 07/28/16 Date of admission: 07/28/16 10:10 Chief complaint: 07/28/2016 History of present illness: Patient is a 61 years old male with h/o major depression, Hyperthyroidism who presented to the ED complaining of chest pain. He states that the pain began that started approximately 12 hours prior to presentation consisted of a sharp for few mints then fallowed by a dull pain. The pain was located over his left chest area somewhat near his shoulder. The onset of pain came while the patient was sleep. Once again it was a dull pain, preceded by a short interval of a sharp pain. The patient did experience some tremors for the past 7 days. He continued to have several episodes of the pain throughout the morning, so his [id number] decided to take him to the ED. 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 has not experienced any shortness of breath, nausea, or diaphoresis during these episodes of pain. Admits to feeling depressed and not taking any of his meds for over two weeks, these include meds for depression and hyperthyroidism Past History Past Medical History: heart failure, hyperthyroidism, hypertension, other ( Major depression) Past Surgical History: No surgical history Social history: no significant social history, single Family history: diabetes, hypertension Medications and Allergies Allergies Allergy/AdvReac Type Severity Reaction Status Date / Time No Known Allergies Allergy Unverified 06/20/16 17:29 Home Medications Medication Instructions Recorded Confirmed Last Taken Type Methimazole [Tapazole] 5 mg PO Q8HR #90 tablet 07/10/16 Unknown Rx Metoprolol [Lopressor TAB] 25 mg PO BID #60 tablet 07/10/16 Unknown Rx PARoxetine [Paxil] 20 mg PO HS #30 tablet 07/10/16 Unknown Rx clonazePAM [KlonoPIN] 0.5 mg PO BID #60 tablet 07/10/16 Unknown Rx Active Meds: Active Medications Acetaminophen (Tylenol) 650 mg PO Q4H PRN PRN Reason: Pain MILD(1-3)/Fever >100.5/HYMAN Aspirin (Ecotrin) 325 mg PO QDAY [facility] Bisacodyl (Dulcolax) 10 mg AL QDAY PRN PRN Reason: Constipation unrelieved by MOM Clonazepam (Klonopin) 0.5 mg PO BID [facility] Enoxaparin Sodium (Lovenox) 40 mg SUB-Q QDAY [facility] Famotidine (Pepcid) 20 mg IV QDAY [facility] Dextrose/Sodium Chloride (D5ns) 1,000 mls @ 75 mls/hr IV [facility] Magnesium Hydroxide (Milk Of Magnesia) 30 ml PO Q4H PRN PRN Reason: Constipation Methimazole (Tapazole) 5 mg PO Q8HR [facility] Metoprolol Tartrate (Lopressor) 25 mg PO BID [facility] Morphine Sulfate (Morphine) 2 mg IV Q4H PRN PRN Reason: Pain, Moderate (4-6) Ondansetron HCl (Zofran) 4 mg IV Q8H PRN PRN Reason: N/V unrelieved by Reglan Paroxetine HCl (Paxil) 20 mg PO HS [facility] Sodium Chloride (Sodium Chloride Flush Syringe 10 Ml) 10 ml IV PRN PRN PRN Reason: LINE FLUSH Review of Systems All systems: negative Constitutional: fatigue, poor appetite, no weight loss, no weight gain, no fever , no chills Ears, nose, mouth and throat: no ear pain, no ear discharge, no tinnitis Cardiovascular: chest pain, palpitations, rapid/irregular heart beat Respiratory: no cough, no cough with sputum, no excessive sputum Gastrointestinal: no abdominal pain, no nausea, no vomiting Genitourinary Male: no hematuria, no flank pain, no discharge Rectal: pain Musculoskeletal: no neck stiffness, no neck pain, no shooting arm pain, no arm numbness/tingling Integumentary: no rash, no pruritis, no redness Neurological: no head injury, no transient paralysis, no paralysis Psychiatric: no anxiety, no memory loss, no change in sleep habits, no sleep disturbances Endocrine: no cold intolerance, no heat intolerance, no polyphagia, no excessive thirst, no polydipsia, no polyuria Hematologic/Lymphatic: no easy bruising, no easy bleeding Allergic/Immunologic: no urticaria, no allergic rhinitis Exam - Constitutional Vitals: Temp Pulse Resp BP Pulse Ox 98.5 F 112 H 16 140/89 97 07/28/16 09:48 07/28/16 09:48 07/28/16 09:48 07/28/16 09:48 07/28/16 10:58 General appearance: Present: no acute distress, well-nourished - EENT Eyes: Present: PERRL, EOM intact ENT: hearing intact, clear oral mucosa, dentition normal - Neck Neck: Present: supple, normal ROM - Respiratory Respiratory effort: normal Respiratory: bilateral: CTA - Cardiovascular Heart rate: 117 Rhythm: other (tachycardia) Heart Sounds: Present: S1 & S2. Absent: rub, click - Extremities Extremities: pulses symmetrical, No edema Peripheral Pulses: within normal limits - Abdominal General gastrointestinal: Present: soft, non-tender, non-distended, normal bowel sounds - Integumentary Integumentary: Present: clear, warm, dry - Psychiatric Psychiatric: no appropriate mood/affect (flat affect) - Neurologic Neurologic: CNII-XII intact, no focal deficits, moves all extremities Results - Labs CBC & Chem 7: 07/28/16 00:11 07/28/16 00:11 Labs: Laboratory Last Values WBC 7.5 K/mm3 (4.5-11.0) 07/28/16 00:11 RBC 4.61 M/mm3 (3.65-5.03) 07/28/16 00:11 Hgb 14.4 gm/dl (11.8-15.2) 07/28/16 00:11 Hct 41.1 % (35.5-45.6) 07/28/16 00:11 MCV 89 fl (84-94) 07/28/16 00:11 MCH 31 pg (28-32) 07/28/16 00:11 MCHC 35 % (32-34) H 07/28/16 00:11 RDW 12.9 % (13.2-15.2) L 07/28/16 00:11 Plt Count 220 K/mm3 (140-440) 07/28/16 00:11 Lymph % (Auto) 21.0 % (13.4-35.0) 07/28/16 00:11 Hitchcock % (Auto) 7.8 % (0.0-7.3) H 07/28/16 00:11 Eos % (Auto) 1.2 % (0.0-4.3) 07/28/16 00:11 Baso % (Auto) 3.0 % (0.0-1.8) H 07/28/16 00:11 Lymph # 1.6 K/mm3 (1.2-5.4) 07/28/16 00:11 Hitchcock # 0.6 K/mm3 (0.0-0.8) 07/28/16 00:11 Eos # 0.1 K/mm3 (0.0-0.4) 07/28/16 00:11 Baso # 0.2 K/mm3 (0.0-0.1) H 07/28/16 00:11 Seg Neutrophils % 67.0 % (40.0-70.0) 07/28/16 00:11 Seg Neutrophils # 5.1 K/mm3 (1.8-7.7) 07/28/16 00:11 PT 13.8 Sec. (12.2-14.9) 07/28/16 00:11 INR 1.07 (0.87-1.13) 07/28/16 00:11 APTT 25.0 Sec. (24.2-36.6) 07/28/16 00:11 VBG pH 7.348 (7.320-7.420) 07/28/16 00:11 Sodium 142 mmol/L (137-145) 07/28/16 00:11 Potassium 4.0 mmol/L (3.6-5.0) 07/28/16 00:11 Chloride 101.8 mmol/L (98-107) 07/28/16 00:11 Carbon Dioxide 24 mmol/L (22-30) 07/28/16 00:11 Anion Gap 20 mmol/L 07/28/16 00:11 BUN 20 mg/dL (9-20) 07/28/16 00:11 Creatinine 0.8 mg/dL (0.8-1.5) 07/28/16 00:11 Estimated GFR > 60 ml/min 07/28/16 00:11 BUN/Creatinine Ratio 25.00 % 07/28/16 00:11 Glucose 119 mg/dL (75-100) H 07/28/16 00:11 Lactic Acid 2.90 mmol/L (0.7-2.0) H* 07/28/16 06:15 Calcium 9.4 mg/dL (8.4-10.2) 07/28/16 00:11 Magnesium 2.00 mg/dL (1.7-2.3) 07/28/16 00:11 Total Bilirubin 1.30 mg/dL (0.1-1.2) H 07/28/16 00:11 AST 21 units/L (5-40) 07/28/16 00:11 ALT 36 units/L (7-56) 07/28/16 00:11 Alkaline Phosphatase 82 units/L (35-129) 07/28/16 00:11 Troponin T < 0.010 ng/mL (0.00-0.029) 07/28/16 06:21 Total Protein 6.6 g/dL (6.3-8.2) 07/28/16 00:11 Albumin 3.9 g/dL (3.9-5) 07/28/16 00:11 Albumin/Globulin Ratio 1.4 % 07/28/16 00:11 Lipase 51 units/L (13-60) 07/28/16 00:11 TSH < 0.005 mlU/mL (0.270-4.200) L 07/28/16 09:30 Free T4 2.36 ng/dL (0.76-1.46) H 07/28/16 09:30 Thyroxine (T4) 0.4 ug/dL (4.0-12.0) L 07/28/16 09:30 Urine Color Yellow (Yellow) 07/28/16 07:36 Urine Turbidity Clear (Clear) 07/28/16 07:36 Urine pH 5.0 (5.0-7.0) 07/28/16 07:36 Ur Specific Ponce 1.056 (1.003-1.030) H 07/28/16 07:36 Urine Protein 30 mg/dl mg/dL (Negative) 07/28/16 07:36 Urine Glucose (UA) Neg mg/dL (Negative) 07/28/16 07:36 Urine Ketones Neg mg/dL (Negative) 07/28/16 07:36 Urine Blood Mod (Negative) 07/28/16 07:36 Urine Nitrite Neg (Negative) 07/28/16 07:36 Urine Bilirubin Neg (Negative) 07/28/16 07:36 Urine Urobilinogen < 2.0 mg/dL (<2.0) 07/28/16 07:36 Ur Leukocyte Esterase Neg (Negative) 07/28/16 07:36 Urine WBC (Auto) 1.0 /HPF (0.0-6.0) 07/28/16 07:36 Urine RBC (Auto) 2.0 /HPF (0.0-6.0) 07/28/16 07:36 Urine Mucus Few /HPF 07/28/16 07:36 Urine Opiates Screen Presumptive positive 07/28/16 03:58 Urine Methadone Screen Presumptive negative 07/28/16 03:58 Ur Barbiturates Screen Presumptive negative 07/28/16 03:58 Ur Phencyclidine Scrn Presumptive negative 07/28/16 03:58 Ur Amphetamines Screen Presumptive negative 07/28/16 03:58 U Benzodiazepines Scrn Presumptive negative 07/28/16 03:58 Urine Cocaine Screen Presumptive negative 07/28/16 03:58 U Marijuana (THC) Screen Presumptive negative 07/28/16 03:58 Drugs of Abuse Note Disclamer 07/28/16 03:58 Plasma/Serum Alcohol < 0.01 gm% (0-0.07) 07/28/16 00:11 - Imaging and Cardiology Chest x-ray: image reviewed (Unremarkable ) CT scan - chest: image reviewed (lings are clear, there are no infiltrates, ) US - abdomen: image reviewed (there is no bowel obstruction) Assessment and Plan Assessment and plan: ASSESSMENT/PLAN 61-year-old man with a past medical history of hyperthyroidism and major depression. He was feeling depressed and stopped taking all his medications 2 weeks ago. Patient presents with chest pain and tachycardia consistent with active hyperthyroidism 1. Chest pain Chest pain is most likely due to tachycardia from hyperthyroidism, ACS has been ruled out by negative troponins, EKG did not show any acute changes, Patient had negative Echocardiogram and Lexiscan three weeks ago IV fluid hydration 2. Lactic acidosis due to Hyperthyroidism and tachycardia lactic acidosis is not due to sepsis, sepsis workup is negative we will resume home medicine Tapazole and IVF hydration 3. Thyroid storm, Hyperthyroidism / Tachycardia CT angiogram was negative for PE, this is due to uncontrolled hyperthyroidism we will resume his Tapazole, and metoprolol continues cardiac monitoring 4. Major Depression, Recurrent and active Patient noncompliance with medication and treatment we will resume his antidepressant Paxil discussed with patient he should take his medications on time and agreed upon course of action. Mental health consult has been placed VTE Lovenox VTE prophylaxis?: Chemical Plan of care discussed with patient/family: Yes
[2016-07-28 14:01] LABS: Creatine Kinase 79 units/L (55-170)
[2016-07-28] MEDS: LOVENOX SUB-Q SCH (16:41)
[2016-07-28] MEDS: TAPAZOLE PO SCH ×2 (16:41→22:45)
[2016-07-28] MEDS: PEPCID IV SCH (16:42)
[2016-07-28 21:43] LABS: Creatine Kinase MB 3.7 ng/mL (0.0-4.0)
[2016-07-28 21:44] LABS: Creatine Kinase 88 units/L (55-170)
[2016-07-28] MEDS: LOPRESSOR PO SCH (22:45)
[2016-07-28] MEDS: PAXIL PO SCH (22:45)
--- NOTE | 2016-07-29 03:20 | Admit Criteria Form ---
Admission Criteria Documentation: CARDIOLOGY GRG Clinical Indications for Admission to Inpatient Care ( Place 'X' for any and all applicable criteria): Hospital admission is needed for appropriate care of the patient because of ANY ONE of the following (1): [ ] I. Hemodynamic instability as indicated by ALL of the following (1)(2)(3) (4)(5) [ ]a) Vital signs or other findings not as expected for chronic patient condition or baseline [ ]b) Instability indicated by ANY ONE of the following: [ ]i) Hypotension [ ]ii) Symptomatic Tachycardia unresponsive to treatment ( e.g., analgesia, fluids, sedation as indicated) [ ]iii) Inadequate perfusion indicated by ANY ONE of the following: [ ] 1) Lactic acidosis (> 2 mmol/L) [ ] 2) New abnormal capillary refill (> 3 seconds) [ ] 3) Reduced urine output [ ] 4) New altered mental status [ ]iv) Orthostatic vital sign changes unresponsive to treatment (e.g., fluids) [ ]v) IV inotropic or vasopressor medication required to maintain adequate blood pressure or perfusion [ ] II. Severe heart failure as indicated by ANY ONE of the following(17)(18) [ ]a) Respiratory distress [ ]b) Hypotension [ ]c) Anasarca (refractory to outpatient therapy) [ ]d) Cardiac arrhythmias of immediate concern [ ]e) Myocardial ischemia [ ] III. Cardiac arrhythmias or findings of immediate concern indicated by ANY ONE of the following (19)(20): [ ] a) Heart rhythms that are inherently dangerous or unstable indicated by ANY ONE of the following (21)(22)(23): [ ] i) Resuscitated ventricular fibrillation or cardiac arrest [ ] ii) Ventricular escape rhythm [ ] iii) Sustained ventricular tachycardia (30 seconds or more of ventricular rhythm at greater than 100 beats per minute) [ ] iv) Nonsustained ventricular tachycardia and ANY ONE of the following: [ ] 1) Suspected cardiac ischemia as cause or consequence of ventricular tachycardia [ ] 2) In setting of acute myocarditis [ ] b) Unstable cardiac conduction defects indicated by ANY ONE of the following(23)(24)(25) [ ] i) Type II second-degree atrioventricular block [ ]ii) Third-degree atrioventricular block [ ]iii) New-onset left bundle branch block with suspected myocardial ischemia [ ]c) Any heart rhythm and ANY ONE of the following (21)(22)(26)(27) (28) [ ] i) Continuous long-term ECG monitoring needed (e.g., initiation of drug requiring monitoring for more than 24 hours) [ ] ii) Patient has automatic implanted cardioverter defibrillator that is repeatedly firing, malfunctioning, or in need of immediate adjustment of settings beyond the scope of ambulatory or observation care [ ]d) Heart rhythms of concern due to ANY ONE of the following: [ ] i) Hypotension [ ] ii) Respiratory distress [ ] iii) Association with other significant symptoms (e.g., bradycardia with syncope or ongoing dizziness, supraventricular tachycardia with chest pain (14)(15)(17) [ ] IV. Monitoring for cardiac contusion beyond the scope of observation care needed [A](30)(31)(32) [ ] V. Surgical or device complication (e.g., valve replacement complication , pacemaker dysfunction) (35)(41)(44)(45)(46) [ ] . Inpatient palliative care needed. [B](49) Also use Inpatient Palliative Care Criteria [ ] VII. Nonbacterial thrombotic (marantic) endocarditis (36)(43)(47)(48) [X ] VIII. Cardiology condition, symptom, or finding for which emergency and observation care has failed or are not considered appropriate. [ ] IX. Acute valvular disease requiring inpatient as indicated by ANY ONE of the following (41) [ ]a) Acute valvular regurgitation (42) [ ]b) Noninfectious valvulitis (43) [ ]c) Obstructive valve thrombosis [ ]d) Paravalvular leak [ ]e) Other significant valvular disorder remaining after emergency or observation level of care (as appropriate) [ ]X. Pericardial disease requiring inpatient treatment as indicated by ANY ONE of the following (33)(34)(35)(36)(37) [ ]a) Suspected tamponade (38)(39)(40) [ ]b) Hemopericardium [ ]c) Other significant pericardial disorder remaining after emergency or observation level of care (as appropriate) [ ] XI. Cardiac ischemia beyond scope of emergency and observation care. [ ] XII. Hypertension requiring inpatient treatment as indicated by ANY ONE of the following (6)(7)(8) [ ]a) SBP greater than 220 mm Hg or DBP greater than 120 mmHg despite treatment [ ]b) SBP greater than 140 mm Hg or DBP greater than 100 mm Hg with evidence of acute end organ damage as indicated by ANY ONE of the following [ ] i) Altered mental status [ ] ii) Acute renal failure as indicated by new onset of ANY ONE of the following (9)(10)(11)(12)(13) [ ]1) 3-fold rise in serum creatinine from baseline [ ]2) Serum creatinine greater than 4 mg/dL ( 354 micromoles/L) with acute rise greater than 0.5 mg/dL (44.2 micromoles/L) [ ]3) Reduction of more than 75% in estimated glomerular filtration rate from baseline [ ]4) Estimated glomerular filtration rate less than 35 mL/min/1.73m2 (0.59 mL/sec/1.73m2) in child up to 18 years of age [ ]5) Cessation of urine output indicated by ALL of the following [ ]A. Adequate volume status [ ]B. Inadequate urine output as indicated by ANY ONE of the following [ ]a. Urine output less than 0.3 mL/kg/hr for 24 hours [ ]b. Anuria (urine output less than 0.1 mL/kg/hr) for 12 hours [ ] iii) Aortic dissection [ ] iv) Myocardial Ischemia [ ] v) Left ventricular heart failure [ ]vi) Retinal Hemorrhage [ ]vii) Other significant finding [ ]c) Hypertension in child requiring inpatient treatment as indicated by ALL of the following(14)(15)(16) [ ] i) Outpatient treatment not effective, not available, or not appropriate [ ]ii) SBP or DBP greater than 95th percentile for age [ ]iii) Evidence of acute end organ damage as indicated by ANY ONE of the following [ ]1) Altered mental status [ ]2) Acute renal failure as indicated by new onset of ANY ONE of the following(9)(10)(11)(12)(13) [ ]A. 3-fold rise in serum creatinine from baseline [ ]B. Serum creatinine greater than 4 mg/dL (354 micromoles/L) with acute rise greater than 0.5 mg/dL (44.2 micromoles/L) [ ]C. Reduction of more than 75% in estimated glomerular filtration rate from baseline [ ]D. Estimated glomerular filtration rate less than 35 mL/min/1.73m2 (0.59 mL/sec/1.73m2) in child up to 18 years of age [ ]E. Cessation of urine output indicated by ALL of the following [ ]a. Adequate volume status [ ]b. Inadequate urine output as indicated by ANY ONE of the following [ ]i) Urine output less than 0.3 mL/kg/hr for 24 hours [ ]ii) Anuria ( urine output less than 0.1 mL/kg/hr) for 12 hours [ ]3) Severe headache [ ]4) Visual disturbance [ ]5) Retinal hemorrhage [ ]6) Other significant finding [ ]XIII. Complications of transplanted heart indicated by ANY ONE of the following(61): [ ]a) Acute graft rejection requiring inpatient management (eg, intravenous immunosuppression)(62)(63) [ ]b) Acute graft heart failure indicated by ANY ONE of the following(64): [ ]i) Hemodynamic instability [ ]ii) Cardiac arrhythmias of immediate concern [ ]iii) Pulmonary edema that is very severe (eg, mechanical ventilation needed, imminent or likely, need for 100% oxygen to keep oxygen saturation above 90%) [ ]iv) Pulmonary edema that is persistent as indicated by ALL of the following: [ ]1) New need for oxygen therapy to keep oxygen saturation above 90% (or increased FiO2 need from baseline) [ ]2) Has not improved sufficiently with emergency department or observation care IV diuretics or other heart failure treatments[E] [ ]v) Altered mental status that is severe or persistent [ ]vi) Increased creatinine (new on laboratory test) with reduction of more than 50% in estimated glomerular filtration rate from baseline [ ]vii) Progressively (ongoing) rising creatinine (known from past laboratory test) with reduction of more than 25% in estimated glomerular filtration rate from baseline [ ]viii) Acute renal failure [ ]ix) Acute peripheral ischemia (eg, examination shows pulseless, cool, mottled, or cyanotic extremity) [ ]x) Pulmonary artery catheter monitoring needed [ ]xi) Other sign or symptom of heart failure requiring inpatient treatment (ie, too severe or not responsive to outpatient and observation care treatment) [ ]c) Infection requiring inpatient management (eg, Hemodynamic instability, need for intravenous antimicrobial treatment)(66)(67)(68)(69)(70) [ ]d) Cardiac allograft vasculopathy requiring inpatient management ( eg evidence of cardiac ischemia)(71) [ ]e) Other complication of transplanted heart (eg, stroke, severe pulmonary hypertension, severe valvular dysfunction) requiring inpatient management(72) The original [facility] [employer] content created by [facility] has been revised. The portions of the content which have been revised are identified through the use of italic text or in bold, and [facility] has neither reviewed nor approved the modified material. All other unmodified content is copyright [facility] [employer]. Please see references footnoted in the original [facility] [employer] edition 2016 Admission Criteria Met: Yes
[2016-07-29] MEDS: TAPAZOLE PO SCH ×3 (06:21→21:04)
[2016-07-29] MEDS: ECOTRIN PO SCH (10:05)
[2016-07-29] MEDS: LOPRESSOR PO SCH ×2 (11:42→21:03)
[2016-07-29] MEDS: LOVENOX SUB-Q SCH (11:43)
[2016-07-29] MEDS: PEPCID IV SCH (11:45)
--- NOTE | 2016-07-29 11:58 | Progress Note ---
Assessment and Plan Assessment and plan: ASSESSMENT/PLAN 61-year-old man with a past medical history of hyperthyroidism and major depression. He was feeling depressed and stopped taking all his medications 2 weeks ago. Patient presents with chest pain and tachycardia consistent with active hyperthyroidism 1. Chest pain Chest pain is most likely due to tachycardia from hyperthyroidism, ACS has been ruled out by negative troponins, EKG did not show any acute changes, Patient had negative Echocardiogram and Lexiscan three weeks ago, therefore no further workup is indicated IV fluid hydration 2. Lactic acidosis due to Hyperthyroidism and tachycardia lactic acidosis is not due to sepsis, sepsis workup is negative TSh is undetectable, and elevate FT4 continue home medicine Tapazole and IVF hydration 3. Thyroid storm, Hyperthyroidism / Tachycardia CT angiogram was negative for PE, this is due to uncontrolled hyperthyroidism continue Tapazole, and metoprolol, HR is much better controlled today continues cardiac monitoring 4. Major Depression, Recurrent and active Patient noncompliance with medication and treatment we will resume his antidepressant Paxil discussed with patient he should take his medications on time and agreed upon course of action. Mental health consult has been placed [facility] History Interval history: Patient continues to be depressed, shows lack of interest, low energy, flat affect, he himself has no complaints today, he denies chest pain, and nurse's notes that his heart rate has trended down. Hospitalist Physical - Physical exam Narrative exam: General: Patient appears well in no distress HEENT: MMM, EOMI cardiac: S1-S2 heard lungs: clear to auscultation, abdomen: soft, nontender, nondistended bowel sounds positive extremities: no edema clubbing or cyanosis Skin: no rash or lesion Neuro: no focal deficit Psych: Flat affect, lack of interest in communicating with me - Constitutional Vitals: Temp Pulse Resp BP Pulse Ox 97.3 F L 85 18 114/77 100 07/29/16 08:00 07/29/16 11:42 07/29/16 08:00 07/29/16 08:00 07/29/16 08:00 General appearance: Present: no acute distress, well-nourished Results - Labs CBC & Chem 7: 07/28/16 00:11 07/28/16 00:11 Labs: Laboratory Last Values WBC 7.5 K/mm3 (4.5-11.0) 07/28/16 00:11 RBC 4.61 M/mm3 (3.65-5.03) 07/28/16 00:11 Hgb 14.4 gm/dl (11.8-15.2) 07/28/16 00:11 Hct 41.1 % (35.5-45.6) 07/28/16 00:11 MCV 89 fl (84-94) 07/28/16 00:11 MCH 31 pg (28-32) 07/28/16 00:11 MCHC 35 % (32-34) H 07/28/16 00:11 RDW 12.9 % (13.2-15.2) L 07/28/16 00:11 Plt Count 220 K/mm3 (140-440) 07/28/16 00:11 Lymph % (Auto) 21.0 % (13.4-35.0) 07/28/16 00:11 [place] % (Auto) 7.8 % (0.0-7.3) H 07/28/16 00:11 Eos % (Auto) 1.2 % (0.0-4.3) 07/28/16 00:11 Baso % (Auto) 3.0 % (0.0-1.8) H 07/28/16 00:11 Lymph # 1.6 K/mm3 (1.2-5.4) 07/28/16 00:11 [place] # 0.6 K/mm3 (0.0-0.8) 07/28/16 00:11 Eos # 0.1 K/mm3 (0.0-0.4) 07/28/16 00:11 Baso # 0.2 K/mm3 (0.0-0.1) H 07/28/16 00:11 Seg Neutrophils % 67.0 % (40.0-70.0) 07/28/16 00:11 Seg Neutrophils # 5.1 K/mm3 (1.8-7.7) 07/28/16 00:11 PT 13.8 Sec. (12.2-14.9) 07/28/16 00:11 INR 1.07 (0.87-1.13) 07/28/16 00:11 APTT 25.0 Sec. (24.2-36.6) 07/28/16 00:11 VBG pH 7.348 (7.320-7.420) 07/28/16 00:11 Sodium 142 mmol/L (137-145) 07/28/16 00:11 Potassium 4.0 mmol/L (3.6-5.0) 07/28/16 00:11 Chloride 101.8 mmol/L (98-107) 07/28/16 00:11 Carbon Dioxide 24 mmol/L (22-30) 07/28/16 00:11 Anion Gap 20 mmol/L 07/28/16 00:11 BUN 20 mg/dL (9-20) 07/28/16 00:11 Creatinine 0.8 mg/dL (0.8-1.5) 07/28/16 00:11 Estimated GFR > 60 ml/min 07/28/16 00:11 BUN/Creatinine Ratio 25.00 % 07/28/16 00:11 Glucose 119 mg/dL (75-100) H 07/28/16 00:11 Lactic Acid 2.90 mmol/L (0.7-2.0) H* 07/28/16 06:15 Calcium 9.4 mg/dL (8.4-10.2) 07/28/16 00:11 Magnesium 2.00 mg/dL (1.7-2.3) 07/28/16 00:11 Total Bilirubin 1.30 mg/dL (0.1-1.2) H 07/28/16 00:11 AST 21 units/L (5-40) 07/28/16 00:11 ALT 36 units/L (7-56) 07/28/16 00:11 Alkaline Phosphatase 82 units/L (35-129) 07/28/16 00:11 Total Creatine Kinase 88 units/L (55-170) 07/28/16 20:44 CK-MB (CK-2) 3.7 ng/mL (0.0-4.0) 07/28/16 20:44 CK-MB (CK-2) Rel Index 4.2 (0-4) H 07/28/16 20:44 Troponin T < 0.010 ng/mL (0.00-0.029) 07/28/16 20:44 Total Protein 6.6 g/dL (6.3-8.2) 07/28/16 00:11 Albumin 3.9 g/dL (3.9-5) 07/28/16 00:11 Albumin/Globulin Ratio 1.4 % 07/28/16 00:11 Lipase 51 units/L (13-60) 07/28/16 00:11 TSH < 0.005 mlU/mL (0.270-4.200) L 07/28/16 09:30 Free T4 2.36 ng/dL (0.76-1.46) H 07/28/16 09:30 Thyroxine (T4) 0.4 ug/dL (4.0-12.0) L 07/28/16 09:30 Urine Color Yellow (Yellow) 07/28/16 07:36 Urine Turbidity Clear (Clear) 07/28/16 07:36 Urine pH 5.0 (5.0-7.0) 07/28/16 07:36 Ur Specific [place] 1.056 (1.003-1.030) H 07/28/16 07:36 Urine Protein 30 mg/dl mg/dL (Negative) 07/28/16 07:36 Urine Glucose (UA) Neg mg/dL (Negative) 07/28/16 07:36 Urine Ketones Neg mg/dL (Negative) 07/28/16 07:36 Urine Blood Mod (Negative) 07/28/16 07:36 Urine Nitrite Neg (Negative) 07/28/16 07:36 Urine Bilirubin Neg (Negative) 07/28/16 07:36 Urine Urobilinogen < 2.0 mg/dL (<2.0) 07/28/16 07:36 Ur Leukocyte Esterase Neg (Negative) 07/28/16 07:36 Urine WBC (Auto) 1.0 /HPF (0.0-6.0) 07/28/16 07:36 Urine RBC (Auto) 2.0 /HPF (0.0-6.0) 07/28/16 07:36 Urine Mucus Few /HPF 07/28/16 07:36 Urine Opiates Screen Presumptive positive 07/28/16 03:58 Urine Methadone Screen Presumptive negative 07/28/16 03:58 Ur Barbiturates Screen Presumptive negative 07/28/16 03:58 Ur Phencyclidine Scrn Presumptive negative 07/28/16 03:58 Ur Amphetamines Screen Presumptive negative 07/28/16 03:58 U Benzodiazepines Scrn Presumptive negative 07/28/16 03:58 Urine Cocaine Screen Presumptive negative 07/28/16 03:58 U Marijuana (THC) Screen Presumptive negative 07/28/16 03:58 Drugs of Abuse Note Disclamer 07/28/16 03:58 Plasma/Serum Alcohol < 0.01 gm% (0-0.07) 07/28/16 00:11
--- NOTE | 2016-07-29 14:20 | Consultation ---
History of Present Illness - Reason for Consult Consult date: 07/29/16 Reason for consult: Mental Health Evaluation Requesting physician: GARRY MARI - Chief Complaint Chief complaint: 07/28/2016 - History of Present Psychiatric Illness 61-year-old man with a past medical history of hyperthyroidism and major depression. He was feeling depressed and stopped taking all his medications 2 weeks ago. Patient presents with chest pain and tachycardia consistent with active hyperthyroidism. Today patient is calm and cooperative during the assessment. He stated that he came to the hospital for chest pain. Also, she stated that days ago he felt like hurting himself with a rope by wrapping it around his neck. I noticed that a superficial laceration on his neck. He stated the laceration come from the rope. He stated that he had not taking his psy medications (Paxil) for 2 weeks prior to this occurrence. He stated that he decided not to go through with it, because it's not the right thing to do. Patient stated that he was dealing with life stressors during this time ( illness, financial obligations, and no transportation). Patient denies SI/HI's, AVH's, sleep disturbance or a poor appetite. He did rate his depression/anxiety 5/10, with 10 being the worse. Medications and Allergies Allergies Allergy/AdvReac Type Severity Reaction Status Date / Time No Known Allergies Allergy Unverified 06/20/16 17:29 Home Medications Medication Instructions Recorded Confirmed Last Taken Type Methimazole [Tapazole] 5 mg PO Q8HR #90 tablet 07/10/16 Unknown Rx Metoprolol [Lopressor TAB] 25 mg PO BID #60 tablet 07/10/16 Unknown Rx PARoxetine [Paxil] 20 mg PO HS #30 tablet 07/10/16 Unknown Rx clonazePAM [KlonoPIN] 0.5 mg PO BID #60 tablet 07/10/16 Unknown Rx Active Meds: Active Medications Acetaminophen (Tylenol) 650 mg PO Q4H PRN PRN Reason: Pain MILD(1-3)/Fever >100.5/HYMAN Aspirin (Ecotrin) 325 mg PO QDAY PIERRE Bisacodyl (Dulcolax) 10 mg AL QDAY PRN PRN Reason: Constipation unrelieved by MOM Clonazepam (Klonopin) 0.5 mg PO BID [facility] Last Admin: 07/29/16 11:44 Dose: 0.5 mg Enoxaparin Sodium (Lovenox) 40 mg SUB-Q QDAY [facility] Last Admin: 07/29/16 11:43 Dose: 40 mg Famotidine (Pepcid) 20 mg PO QDAY [facility] Dextrose/Sodium Chloride (D5ns) 1,000 mls @ 75 mls/hr IV DIRECT [facility] Magnesium Hydroxide (Milk Of Magnesia) 30 ml PO Q4H PRN PRN Reason: Constipation Methimazole (Tapazole) 5 mg PO Q8HR [facility] Last Admin: 07/29/16 06:21 Dose: 5 mg Metoprolol Tartrate (Lopressor) 50 mg PO BID [facility] Last Admin: 07/29/16 11:42 Dose: 50 mg Morphine Sulfate (Morphine) 2 mg IV Q4H PRN PRN Reason: Pain, Moderate (4-6) Ondansetron HCl (Zofran) 4 mg IV Q8H PRN PRN Reason: N/V unrelieved by Reglan Paroxetine HCl (Paxil) 20 mg PO [facility] Last Admin: 07/28/16 22:45 Dose: 20 mg Sodium Chloride (Sodium Chloride Flush Syringe 10 Ml) 10 ml IV PRN PRN PRN Reason: LINE FLUSH Past psychiatric history - Past Medical History Past Medical History: other (Chest Pain) Past Surgical History: No surgical history - past Psychiatric treatment and history Psych: Depression psychiatric treatment history: Seen a Psychiatrist in [place], [place] for depression. He denies a fam hx of psy. 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) Mental Status Exam - Vital signs Last Vital Signs Temp 97.3 F L 07/29/16 08:00 Pulse 85 07/29/16 11:42 Resp 18 07/29/16 08:00 BP 114/77 07/29/16 08:00 Pulse Ox 100 07/29/16 08:00 - Exam Narrative exam: ROS: (+) depression, (-) psychosis MSE: Appearance: cooperative, calm Behavior: poor eye contact Speech: regular rate and tone Mood: "feel better" Affect: congruent to mood Thought Process: circumstantial Thought Content: Denies SI/HI and AVH's Motor Activity: lying in bed Cognition: a/ox 3 Insight: fair Judgment: fair Results Result Diagrams: 07/28/16 00:11 07/28/16 00:11 Abnormal lab results 07/28/16 Range/Units 20:44 CK-MB (CK-2) Rel Index 4.2 H (0-4) All other labs normal. Assessment and Plan Assessment and plan: Impression: MDD, Recurrence Severe. Today patient is calm and cooperative during the assessment. He stated that he came to the hospital for chest pain. Also, she stated that days ago he felt like hurting himself with a rope. I noticed that he has a superficial laceration on his neck. He stated the laceration come from the rope. He stated that he had not taking his psy medications (Paxil) for 2 weeks prior to this occurrence. Patient denies SI/HI' s and AVH's. RR: R/O Bipolar I. This screening and assessment is based on information collected from the following sources: II. SUICIDE RISK SCREENING (within last 30 days): A.) Suicidal thoughts/behaviors: Per the patient wrapped a rope around his neck a week ago. SUICIDE RISK ASSESSMENT III. FACTORS THAT INCREASE RISK: A.) Demographic and Substance Use Factors: Denies substance use. B.) Current/Recent Factors (within past 3 months): Psychosocial/Environmental Factors: No transportation, Spouse Illness Physical Illness: Chest Pain Cognitive/Psychological Factors: None C.) Historical Factors: Previous seen for depression. D.) Diagnostic/Symptom/Treatment Factors: Non-Compliant of psy medications. Currently poor access to mental health care due to lack of insurance E.) Acute Risk Factor Severity (DESC; MILD/MOD/SEVERE) Other factors for this individual that increase risk: IV. FACTORS THAT DECREASE RISK: Resilience/Protective Factors: Intermittent psychosocial supports Other factors for this individual that decrease risk: No previous attempt history noted V. Clinician's Formulation of Risk and Determination of level of Care: This is a 61-year-old male who is having depression to chronic and acute stressors. Patient stated that he did not take his psy medication for 2 weeks. he stated that he was "lying around his home" thinking about his life which exacerbated his depression. Depression has been a major issue to this patient over many years. Patient was placed on an antidepressant and a Benzo before his previous discharge from Psychiatry followed the patient his entire admission and he was appropriate. Patient stated that he wants to live and be there for his family and he believe the psy medication does help him when he takes them. Consequently, it is the opinion of the treatment team that the patient is at low risk at the current time given the above interventions that were implemented in his care. Estimation of Imminent Risk: Low due to the above explanation Determination of Level of Care based on Suicide Risk: Recommend PHP for this patient. It appears most of his depression symptoms are likely related to lack of coping with stressors. Patient has denied the desire to harm himself over the past 24 hours. Additionally, patient does not have a plan on how he would harm himself. Narrative description of clinical reasoning. (This must be completed on all patients): . Plan and Interventions based on Suicide Risk: This patient will be recommended to volunteer for a PHP once discharged. VII. Discharge/After Hours Support Plan: Patient can return back to the ER, call 911 or crisis line if symptoms of depression, anxiety, suicidality return. Recommendation/Plan: Continue Paxil 20 mg PO HS for depression and Klonopin 0.5 mg BID for anxiety. Once discharged recommend PHP with a local behavioral health facility.
[2016-07-29] MEDS: PAXIL PO SCH (21:04)
[2016-07-30] MEDS: TAPAZOLE PO SCH (06:00)
[2016-07-30] MEDS ORDERED: PEPCID PO SCH (10:00)
[2016-07-30] MEDS: LOVENOX SUB-Q SCH (11:06)
[2016-07-30] MEDS: LOPRESSOR PO SCH (11:07)
[2016-07-30] MEDS: ECOTRIN PO SCH (11:08)
--- NOTE | 2016-07-30 11:50 | Discharge Summary ---
Providers - Providers Date of Admission: 07/28/16 10:10 Date of discharge: 07/30/16 Attending physician: GUSTAVO CHAUDHARY 07/28/16 13:53 Consult to Mental Health [CONS] Routine Reason For Exam: behavioral disturbance Place consult to:: [facility] Notified:: anchor intake Phone number called:: [phone] Was contact made?: Yes If yes, spoke with:: salud Time called:: 16:11 Comment:: left message on [facility] [phone] 07/30/16 08:02 Consult to Dietitian/Nutrition [CONS] Routine Physician Instructions: Reason For Exam: Reason for Consult: Poor oral intake Primary care physician: BOOKS SALESPERSON Hospitalization Reason for admission: cp Condition: Stable Hospital course: 61-year-old man with a past medical history of hyperthyroidism and major depression. He was feeling depressed and stopped taking all his medications 2 weeks ago. Patient presents with chest pain and tachycardia consistent with active hyperthyroidism. Chest pain is most likely due to tachycardia from hyperthyroidism, ACS has been ruled out by negative troponins, EKG did not show any acute changes. Patient had negative Echocardiogram and Lexiscan three weeks ago, therefore no further workup is indicated. CT angiogram was negative for PE. Patient is to continue medications of Tapazole and metoprolol. Patient was counseled with regards to compliance. Patient is also to resume his antidepressant of Paxil. Mental health did evaluate the patient. The mental health treatment team felt that the patient is at low risk at the current time given the interventions that were implemented in his care. Patient stated to the psychiatry team that he wants to live and be there for his family and he believes the psy medication does help him when he takes them. Patient again encouraged to take medications. Patient is to continue Paxil 20 mg PO HS for depression and Klonopin 0.5 mg BID for anxiety. Once discharged , psychiatry recommend PHP with a local behavioral health facility. Patient can return back to the ER, call 911 or crisis line if symptoms of depression, anxiety, suicidality return. Disposition: - TO HOME OR SELFCARE Time spent for discharge: 35 - Discharge Diagnoses (1) Chest pain Status: Acute Qualifiers: Chest pain type: unspecified Ischemic chest pain type: I Qualified Code(s ): R07.9 - Chest pain, unspecified (2) Elevated lactic acid level Status: Acute (3) Hyperthyroidism Status: Acute (4) Major depression Status: Chronic Qualifiers: Major depression recurrence: M Active/Remission status: A Major depression episode severity: M Psychotic features: P Core Measure Documentation - Palliative Care Palliative Care/ Comfort Measures: Not Applicable - Core Measures Any of the following diagnoses?: none Exam - Constitutional Vitals: Temp Pulse Resp BP Pulse Ox 98.3 F 79 18 121/87 97 07/30/16 08:04 07/30/16 11:07 07/30/16 08:04 07/30/16 08:04 07/30/16 08:04 General appearance: Present: no acute distress, well-nourished - EENT Eyes: Present: PERRL ENT: hearing intact, clear oral mucosa - Neck Neck: Present: supple, normal ROM - Respiratory Respiratory effort: normal Respiratory: bilateral: CTA - Cardiovascular Heart Sounds: Present: S1 & S2. Absent: rub, click - Extremities Extremities: pulses symmetrical, No edema Peripheral Pulses: within normal limits - Abdominal General gastrointestinal: Present: soft, non-tender, non-distended, normal bowel sounds Male genitourinary: Present: normal - Integumentary Integumentary: Present: clear, warm, dry - Musculoskeletal Musculoskeletal: gait normal, strength equal bilaterally - Psychiatric Psychiatric: appropriate mood/affect, intact judgment & insight - Neurologic Neurologic: CNII-XII intact, moves all extremities Plan Activity: no restrictions Weight Bearing Status: Full Weight Bearing Diet: regular Additional Instructions: Encourage medication compliance Follow up with: PRIMARY CARE, [Primary Care Provider] - 3-5 Days Prescriptions: clonazePAM [KlonoPIN] 0.5 mg PO BID #60 tablet Methimazole [Tapazole] 5 mg PO Q8HR #90 tablet Metoprolol [Lopressor TAB] 25 mg PO BID #60 tablet PARoxetine [Paxil] 20 mg PO HS #30 tablet
--- NOTE | 2016-07-30 17:02 | Progress Note ---
Subjective - Reason for Consult Consult date: 07/30/16 Reason for consult: Psychiatry Follow-up - Chief Complaint Chief complaint: "I just worry so much" 61-year-old man with a past medical history of hyperthyroidism and major depression. He was feeling depressed and stopped taking all his medications 2 weeks ago. Today patient is calm and cooperative during assessment. He stated that he worries about his , because she has a hx of falls. He stated that he want to do more for her financially. I spoke with his nephew Mich Emmanuel [phone] and he stated that his uncle had not taken his medications (possibly 1 week) prior to admission to [facility]. I informed him of the PHP with [facility] for his uncle. He agreed to take his uncle to [facility] once he is discharged. Patient denies SI/HI's, AVH's, sleep disturbance or a poor appetite. Mental Status Exam - Vital signs Last Vital Signs Temp 98.5 F 07/30/16 11:35 Pulse 76 07/30/16 11:35 Resp 20 07/30/16 11:35 BP 119/79 07/30/16 11:35 Pulse Ox 99 07/30/16 11:35 - Exam Narrative exam: MSE: Appearance: cooperative, calm Behavior: poor eye contact Speech: regular rate and tone Mood: "okay" Affect: flat Thought Process: linear Thought Content: Denies SI/HI and AVH's Motor Activity: lying in bed Cognition: a/ox 3 Insight: fair Judgment: fair Assessment and Plan Impression: MDD, Recurrence Severe. Today patient is calm and cooperative during assessment. He stated that he worries about his , because she has a hx of falls. He stated that he want to do more for her financially. I spoke with his nephew Mich Emmanuel [phone] and he stated that his uncle had not taken his medications (possibly 1 week) prior to admission to [facility]. Patient has support from his nephew who reside with him. Patient denies SI/HI's and AVH's. Recommendation/Plan: Continue Paxil 20 mg PO HS for depression and Klonopin 0.5 mg BID for anxiety. Once discharged recommend [facility] PHP. Patient has agreed to attend [facility] PHP.
[2016-07-30 20:53] VITALS: BP 101/66
== END 2016-07-30 21:45 | disposition home or self-care (01) | DRG 644 ==
LOC: ED 23:32 → 4A 07-28 10:10
PROVIDERS: ADMIT Internal Medicine; ATTEND Hospitalist
DX: E05.91 Thyrotoxicosis, unspecified with thyrotoxic crisis or storm (principal); E87.2 Acidosis; F33.2 Major depressive disorder, recurrent severe without psychotic features; F41.9 Anxiety disorder, unspecified; R74.0 Nonspecific elevation of levels of transaminase and lactic acid dehydrogenase [LDH]; I50.9 Heart failure, unspecified; E11.9 Type 2 diabetes mellitus without complications; Z82.49 Family history of ischemic heart disease and other diseases of the circulatory system; Z83.3 Family history of diabetes mellitus; Z91.14 Patient's other noncompliance with medication regimen
CPT/HCPCS: 36415; 70450; 71020; 71275; 74177; 80053; 80307; 80320; 81001; 82140; 82550; 82553; 82805; 83690; 83735; 84436; 84439; 84443; 84484; 85025; 85610; 85730; 93005; 93010; 96374; 96375; G0480; J1650; J2060; J2270; J7042; Q9967

== ENCOUNTER 2017-03-16 23:03 | Emergency (ER) | payer MEDICARE ==
[2017-03-17] MEDS ORDERED: ZOFRAN IV ONE (00:11)
[2017-03-17] MEDS ORDERED: SUBLIMAZE IV ONE (00:11)
[2017-03-17] MEDS ORDERED: NACL 0.9% 1000 ML 1,000 ML IV ONE (00:11)
--- NOTE | 2017-03-17 00:16 | Emergency Department Report ---
ED GI Bleed HPI - General Stated complaint: RECTAL BLEEDING/FEVER/ABD PAIN Time Seen by Provider: 03/16/17 23:57 Source: patient, EMS Limitations: Language Barrier - History of Present Illness Initial comments: Patient is 61 years old male history of hypertension and diabetes presented via EMS with GI bleed for the last 3 days. Patient stated that he has been having bloody stool. Patient denied any nausea or vomiting, no vomiting blood. Patient also reports diffuse abdominal pain. No fever. MD complaint: blood on toilet paper, gross hematochezia -: days(s) Location: diffuse Severity scale (0 -10): 7 Quality: cramping Associated Symptoms: abdominal pain - Related Data Home Medications Medication Instructions Recorded Confirmed Last Taken No Known Home Medications [No 03/17/17 03/17/17 Unknown Reported Home Medications] Allergies Allergy/AdvReac Type Severity Reaction Status Date / Time No Known Allergies Allergy Unverified 06/20/16 17:29 ED Review of Systems ROS: Stated complaint: RECTAL BLEEDING/FEVER/ABD PAIN Other details as noted in HPI Comment: All other systems reviewed and negative Constitutional: denies: chills, fever Respiratory: denies: cough, SOB with exertion, SOB at rest Cardiovascular: denies: chest pain, palpitations, dyspnea on exertion, orthopnea , edema, syncope Gastrointestinal: abdominal pain, hematochezia. denies: nausea, vomiting, diarrhea, constipation, hematemesis Genitourinary: denies: urgency, dysuria, frequency, hematuria Neurological: denies: headache, weakness, numbness, paresthesias, confusion, abnormal gait, vertigo ED Past Medical Hx - Past Medical History Hx Congestive Heart Failure: Yes Hx Diabetes: Yes Hx Psychiatric Treatment: Yes (Depression) Hx COPD: No Additional medical history: hyponatremia - Surgical History Additional Surgical History: Hernia, right leg surgery - Social History Smoking Status: Unknown if ever smoked - Medications Home Medications: Home Medications Medication Instructions Recorded Confirmed Last Taken Type No Known Home Medications [No 03/17/17 03/17/17 Unknown History Reported Home Medications] ED Physical Exam - General Limitations: Language Barrier General appearance: alert, in no apparent distress - Head Head exam: Present: atraumatic, normocephalic, normal inspection - Eye Eye exam: Present: normal appearance, PERRL, EOMI - ENT ENT exam: Present: normal exam, normal orophraynx, mucous membranes moist - Neck Neck exam: Present: normal inspection, full ROM. Absent: tenderness, meningismus - Respiratory Respiratory exam: Present: normal lung sounds bilaterally. Absent: respiratory distress, wheezes, rales, rhonchi, chest wall tenderness, accessory muscle use, decreased breath sounds, prolonged expiratory - Cardiovascular Cardiovascular Exam: Present: regular rate, normal rhythm, normal heart sounds - GI/Abdominal GI/Abdominal exam: Present: soft, tenderness (diffuse tenderness), normal bowel sounds. Absent: distended, guarding, rebound, rigid, organomegaly, mass, bruit , pulsatile mass, hernia - Rectal Rectal exam: Present: normal inspection, normal rectal tone, heme (+) stool, prostate enlargement. Absent: fecal impaction, hemorrhoids, mass, tenderness, prostate tenderness - Extremities Exam Extremities exam: Present: normal inspection, full ROM, normal capillary refill - Back Exam Back exam: Present: normal inspection, full ROM. Absent: tenderness, CVA tenderness (R), CVA tenderness (L), muscle spasm, paraspinal tenderness, vertebral tenderness - Neurological Exam Neurological exam: Present: alert, oriented X3, CN II-XII intact, normal gait, reflexes normal. Absent: abnormal gait, motor sensory deficit - Skin Skin exam: Present: warm, intact, normal color. Absent: cyanosis, diaphoretic, erythema ED Course Vital Signs 03/17/17 03/17/17 03/17/17 00:04 00:16 00:20 Temperature 100.3 F H Pulse Rate 100 H 98 H Respiratory 29 H 20 Rate Blood Pressure 124/84 124/84 Blood Pressure [Left] O2 Sat by Pulse 98 100 100 Oximetry 03/17/17 03/17/17 03/17/17 00:24 00:30 00:45 Temperature Pulse Rate 100 H 97 H 100 H Respiratory 16 32 H 22 Rate Blood Pressure 125/87 118/77 Blood Pressure 120/79 [Left] O2 Sat by Pulse 100 100 100 Oximetry 03/17/17 03/17/17 03/17/17 01:03 01:16 01:30 Temperature Pulse Rate 111 H 105 H 103 H Respiratory 28 H 22 24 Rate Blood Pressure 128/82 128/82 Blood Pressure [Left] O2 Sat by Pulse 95 98 97 Oximetry 03/17/17 03/17/17 03/17/17 01:46 02:00 02:16 Temperature Pulse Rate 106 H 105 H 105 H Respiratory 16 23 20 Rate Blood Pressure 128/82 115/79 115/79 Blood Pressure [Left] O2 Sat by Pulse 99 99 98 Oximetry 03/17/17 02:30 Temperature Pulse Rate 106 H Respiratory 25 H Rate Blood Pressure 118/78 Blood Pressure [Left] O2 Sat by Pulse 98 Oximetry - Reevaluation(s) Reevaluation #1: 03/17/17 04:50 Patient stated that he is feeling much better. His abdominal pain is resolved. No rectal bleeding observed in the ER. ED Medical Decision Making - Lab Data Result diagrams: 03/17/17 00:16 03/17/17 00:16 - Radiology Data Radiology results: report reviewed Referring Physician: JANET MARQUEZ Patient Name: RICHY VALENCIA Date of : 1955 Sex: Male Report Date: 2017-03-16 Report Status: [place] [address] Cat Scan Report Signed Patient: RICHY VALENCIA MR#: [id number] : 1955 Acct:[id number] Age/Sex: 61 / M ADM Date: 03/16/17 Loc: ED Attending Dr: Ordering Physician: JANET MARQUEZ Date of Service: 03/17/17 Procedure(s): CT abdomen pelvis w con Accession Number(s): [id number] cc: JANET MARQUEZ FINAL REPORT EXAM: CT ABDOMEN PELVIS W CON HISTORY: Abdominal pain. TECHNIQUE: Axial CT images of the abdomen and pelvis were obtained, following the administration of intravenous contrast only. Axial delayed and coronal and sagittal reformatted images were also obtained. Comparison is made with prior study 07/28/2016. FINDINGS: The liver, biliary tree, gallbladder, pancreas, spleen, and adrenal glands are unremarkable. There are 2-4 mm low attenuating lesions in the lateral left upper pole, lateral left renal midpole, and lateral right renal midpole, too small to characterize, though stable in appearance. There is no urinary tract obstruction. Evaluation of the bowel is limited due to lack of oral contrast. The stomach is collapsed, not well evaluated. There is no intestinal obstruction or free air. Of note, the appendix is normal. There is a 1.9 cm focal fluid density in the right inguinal canal, new compared to prior exam and located at site of previously identified fat containing inguinal hernia. This may represent postsurgical change related to implanted mesh material, as there are also minimal streaky densities in the overlying subcutaneous fat, suggesting interval surgery. Correlation with surgical history and physical exam is recommended. Additional surgical clips are seen in left inguinal canal from prior hernia repair, also seen on prior study. The abdominal aorta is normal in caliber. There is no pathologic abdominal or pelvic lymphadenopathy, with multiple subcentimeter left periaortic and aortocaval lymph nodes again noted, stable in appearance. There is no free or loculated fluid collection. The prostate gland is normal in size. The urinary bladder is unremarkable. There are [id number] spondylotic degenerative changes seen throughout the spine. There are moderate dependent changes at both posterior lung bases. IMPRESSION: 1. No intestinal obstruction or free air. Normal CT appearance of the appendix. 2. 1.8 cm focal fluid density in the right inguinal canal, at site of previously identified fat containing inguinal hernia. This is nonspecific and may represent postsurgical changes related to implanted mesh, though correlation with surgical history and physical exam is recommended. 3. Subcentimeter bilateral renal low attenuating lesions, too small to characterize. Transcribed By: [facility] Dictated By: KENYA HYMAN MD Electronically Authenticated By: KENYA HYMAN MD Signed Date/Time: 03/16/172325 DD/ 25 TD/TT: 03/16/172325 Critical care attestation.: If time is entered above; I have spent that time in minutes in the direct care of this critically ill patient, excluding procedure time. ED Disposition Clinical Impression: GI bleed, Abdominal pain, Colitis Disposition: - TO HOME OR SELFCARE Is pt being admited?: No Condition: Stable Instructions: Gastrointestinal Bleeding (ED), Abdominal Pain (ED) Referrals: SUSIE DAILY MD [Primary Care Provider] - 3-5 Days
[2017-03-17 00:45] LABS: Hemoglobin 15.4 gm/dl (11.8-15.2); Mean Corpuscular HGB Conc 35 % (32-34); Mean Corpuscular Hemoglobin 30 pg (28-32); Mean Corpuscular Volume 87 fl (84-94); Platelet Count 122 K/mm3 (140-440); Red Blood Count 5.08 M/mm3 (3.65-5.03); Red Cell Distribution Width 12.5 % (13.2-15.2)
[2017-03-17 00:48] LABS: INR 0.98 (0.87-1.13)
[2017-03-17 00:49] LABS: Partial Thromboplastin Time 29.2 Sec. (24.2-36.6)
[2017-03-17 01:25] LABS: Alanine Aminotransferase 52 units/L (7-56); Albumin 3.8 g/dL (3.9-5); BUN/Creatinine Ratio 28; Blood Urea Nitrogen 17 mg/dL (9-20); Calcium 9.1 mg/dL (8.4-10.2); Hemolysis Index 7
[2017-03-17 01:48] LABS: Band Neutrophils # (Manual) 0.2 K/mm3; Basophils % (Manual) 0 % (0.0-1.8); Eosinophils % (Manual) 0 % (0.0-4.3); Total Cells Counted 100
[2017-03-17 01:49] LABS: Platelet Estimate Appears Decreased
--- NOTE | 2017-03-17 03:29 | Cat Scan Report ---
FINAL REPORT EXAM: CT ABDOMEN PELVIS W CON HISTORY: Abdominal pain. TECHNIQUE: Axial CT images of the abdomen and pelvis were obtained, following the administration of intravenous contrast only. Axial delayed and coronal and sagittal reformatted images were also obtained. Comparison is made with prior study 07/28/2016. FINDINGS: The liver, biliary tree, gallbladder, pancreas, spleen, and adrenal glands are unremarkable. There are 2-4 mm low attenuating lesions in the lateral left upper pole, lateral left renal midpole, and lateral right renal midpole, too small to characterize, though stable in appearance. There is no urinary tract obstruction. Evaluation of the bowel is limited due to lack of oral contrast. The stomach is collapsed, not well evaluated. There is no intestinal obstruction or free air. Of note, the appendix is normal. There is a 1.9 cm focal fluid density in the right inguinal canal, new compared to prior exam and located at site of previously identified fat containing inguinal hernia. This may represent postsurgical change related to implanted mesh material, as there are also minimal streaky densities in the overlying subcutaneous fat, suggesting interval surgery. Correlation with surgical history and physical exam is recommended. Additional surgical clips are seen in left inguinal canal from prior hernia repair, also seen on prior study. The abdominal aorta is normal in caliber. There is no pathologic abdominal or pelvic lymphadenopathy, with multiple subcentimeter left periaortic and aortocaval lymph nodes again noted, stable in appearance. There is no free or loculated fluid collection. The prostate gland is normal in size. The urinary bladder is unremarkable. There are [id number] spondylotic degenerative changes seen throughout the spine. There are moderate dependent changes at both posterior lung bases. IMPRESSION: 1. No intestinal obstruction or free air. Normal CT appearance of the appendix. 2. 1.8 cm focal fluid density in the right inguinal canal, at site of previously identified fat containing inguinal hernia. This is nonspecific and may represent postsurgical changes related to implanted mesh, though correlation with surgical history and physical exam is recommended. 3. Subcentimeter bilateral renal low attenuating lesions, too small to characterize.
[2017-03-17 05:41] VITALS: BP 121/78
[2017-03-17] MEDS ORDERED: ZOSYN/NS 3.375GM/50ML 3.375 GM/50 ML BAG IV SCH (06:00)
== END 2017-03-17 05:52 | disposition home or self-care (01) ==
LOC: ED 23:03
DX: K92.2 Gastrointestinal hemorrhage, unspecified (principal); K52.9 Noninfective gastroenteritis and colitis, unspecified; R10.9 Unspecified abdominal pain; I50.9 Heart failure, unspecified; E11.9 Type 2 diabetes mellitus without complications
CPT/HCPCS: 36415; 74177; 80053; 82271; 85007; 85025; 85610; 85730; 86850; 86900; 86901; 93005; 93010; 96361; 96365; 96375; 99284; J2405; J3010; J7030; Q9967; J2543

== ENCOUNTER 2018-10-29 16:52 | Emergency (ER) | payer MEDICARE ==
[2018-10-29] MEDS ORDERED: NORCO 5/325 PO ONE (17:14)
--- NOTE | 2018-10-29 17:25 | Emergency Department Report ---
HPI - General Chief Complaint: Fall Time Seen by Provider: 10/29/18 17:03 - HPI HPI: 63-year-old male presents to the emergency department with a complaint of some neck pain, low back pain, hip pain and pain to the sacrum/buttocks after allegedly falling off of a ladder from 18 feet in the air. He did not hit his head or have any loss of consciousness but was dizzy after the fall. He has a past mental history of hypertension and diabetes. He did not take anything for his symptoms prior to presentation. ED Past Medical Hx - Past Medical History Hx Hypertension: Yes Hx Congestive Heart Failure: Yes Hx Diabetes: Yes Hx Psychiatric Treatment: Yes (Depression) Hx COPD: No Additional medical history: hyponatremia - Surgical History Additional Surgical History: Hernia, right leg surgery - Social History Smoking Status: Unknown if ever smoked - Medications Home Medications: Home Medications Medication Instructions Recorded Confirmed Last Taken Type Ondansetron [Zofran Odt] 4 mg PO Q8HR PRN #14 tab.rapdis 03/17/17 Unknown Rx levoFLOXacin [Levaquin TAB] 500 mg PO QDAY #7 tablet 03/17/17 Unknown Rx HYDROcodone/APAP 5-325 [Crystal 1 each PO Q6HR PRN #14 tablet 10/29/18 Unknown Rx 5-325 mg TAB] ED Review of Systems ROS: Stated complaint: FALL INJURY Other details as noted in HPI Comment: All other systems reviewed and negative Constitutional: denies: chills, fever Eyes: denies: eye pain, vision change ENT: denies: ear pain, throat pain Respiratory: denies: cough, shortness of breath Cardiovascular: denies: chest pain, palpitations Gastrointestinal: denies: abdominal pain, vomiting Genitourinary: denies: dysuria, discharge Musculoskeletal: back pain, arthralgia, myalgia Skin: denies: rash Neurological: denies: weakness, numbness Physical Exam - Physical Exam Physical Exam: GENERAL: The patient is well-developed well-nourished. HENT: Normocephalic. Atraumatic. Patient has moist mucous membranes. EYES: Extraocular motions are intact. Pupils equal reactive to light bilaterally. No nystagmus. NECK: Supple. Trachea is midline. Midline and bilateral paraspinal tenderness to palpation but no step-off or deformity. CHEST/LUNGS: Clear to auscultation. There is no respiratory distress noted. HEART/CARDIOVASCULAR: Regular. There is no tachycardia. There is no murmur. ABDOMEN: Abdomen is soft, nontender. Patient has normal bowel sounds. There is no abdominal distention. SKIN: Skin is warm and dry. NEURO: The patient is awake, alert, and oriented. The patient is cooperative. The patient has no focal neurologic deficits. Normal speech. Cranial nerves II through XII grossly intact. MUSCULOSKELETAL: There is some tenderness to palpation to the bilateral hips but no crepitus, deformity, laxity. There is no limitation range of motion. BACK: There is lower thoracic and lumbar midline and bilateral paraspinal tenderness to palpation, but no step-off or deformity. ED Course - Consultations Consultation #1: 10/30/18 10:03 I spoke with the orthopedist on-call, Dr. De La Rosa, who says that this isolated L3 compression fracture without any signs of posterior involvement or involvement of the canal/cord, is safe for discharge home. He does not feel that we have any back brace is here for the patient but he can get one outpatient and follow up outpatient for this injury. ED Medical Decision Making - Radiology Data Radiology results: report reviewed CT ABDOMEN AND PELVIS WITHOUT CONTRAST INDICATION: Pelvic and hip pain after fall from 18 feet. COMPARISON: CT abdomen and pelvis with contrast from 03/17. TECHNIQUE: Axial, coronal and sagittal CT imaging of the abdomen and pelvis was performed without contrast. Lack of intravenous contrast limits evaluation of the vascular and solid organs. All CT scans at this location are performed using CT dose reduction for ALARA by means of automated exposure control. FINDINGS: LOWER CHEST: Dependent atelectasis is noted bilaterally. No additional significant abnormality. LIVER: No significant abnormality. BILIARY: No significant abnormality. PANCREAS: No significant abnormality. SPLEEN: No significant abnormality. ADRENALS: No significant abnormality. KIDNEYS AND URETERS: No significant abnormality. GI TRACT: No significant abnormality of the stomach, small bowel or colon. The appendix is surgically absent. PERITONEUM: No free fluid. No free air. No fluid collection. LYMPH NODES: No significant adenopathy. VASCULATURE: No significant abnormality. URINARY BLADDER: No significant abnormality. REPRODUCTIVE ORGANS: No significant abnormality. A DDITIONAL FINDINGS: None. SKELETAL SYSTEM: There are degenerative changes throughout the spine. There is an acute compression fracture of the superior endplate of L3 with mild loss of vertebral height and no involvement of the posterior wall of the vertebral body or posterior elements. IMPRESSION: 1. Acute compression fracture of L3 as above. 2. No additional acute abnormality of the abdomen or pelvis. CT LUMBAR SPINE WITHOUT CONTRAST HISTORY: Fell down 18 feet COMPARISON: None TECHNIQUE: CT images of the lumbar spine were obtained without contrast. Sagittal and coronal reformats were post-processed. All CT scans at this location are performed using CT dose reduction for ALARA by means of automated exposure control. CONTRAST: None. FINDINGS: Alignment: Normal. No traumatic subluxation. Vertebrae:No significant abnormality. At L3 vertebral body, minimal height loss is seen along the superior endplate. Posterior cortex is intact. Bony canal is not compromised. I am unable to determine the age of these fracture. Of the vertebral bodies are normal. Disc Spaces: L1-L2 disc space is normal. Mild facet joint hypertrophic changes are seen. L2-L3 disc space is normal. Moderate facet joint hypertrophic changes are seen. At L3-L4 disc level, bulging disc is seen with ligamentous hypertrophy. At L4-L5 disc level, bulging disc is seen. Mild facet joint hypertrophic changes are seen. At L5-S1 disc level, disc height is narrowed. Broad-based bony spur is seen extending bilaterally more to the left side. Facet joint hypertrophic changes are seen bilaterally. Facet Joints:See above Additional Findings: None IMPRESSION: Compression fracture along the superior endplate of L3 unable to determine the age of these fracture any: Bony canal is not compromised. CT THORACIC SPINE WITHOUT CONTRAST HISTORY: Fell down; back pain COMPARISON: None TECHNIQUE: CT images of the thoracic spine were obtained without contrast. Sagittal and coronal reformats were post-processed. All CT scans at this location are performed using CT dose reduction for ALARA by means of automated exposure control. CONTRAST: None. FINDINGS: Alignment: Normal. No traumatic subluxation. Vertebrae:No significant abnormality. No fracture. Disc Spaces: No significant abnormality allowing for lack of intrathecal contrast. Facet Joints:No significant abnormality. Cervicothoracic Junction:No significant abnormality. Additional Findings: Bridging osteophytes are seen at multiple levels. IMPRESSION: 1. I do not see fracture in the thoracic spine. CT head/brain wo con INDICATION / CLINICAL INFORMATION: 63 years Male; fall from 18 feet, dizzy. TECHNIQUE: Routine CT head without contrast. All CT scans at this location are performed using CT dose reduction for ALARA by means of automated exposure control. COMPARISON: 08/07/2016 FINDINGS: BRAIN / INTRACRANIAL CONTENTS: No acute hemorrhage, mass effect, midline shift, hydrocephalus, or acute, large territorial infarct. No significant cerebral atrophy. There are minimal areas of decreased attenuation in the white matter of the cerebral hemispheres, as well as the gangliocapsular regions. These are nonspecific findings and may be related to microangiopathy (hypertension, diabetes, atherosclerosis), given the patient's age. It might be difficult to evaluate for small areas of ischemia without diffusion imaging by MRI. CRANIOCERVICAL JUNCTION: No significant abnormality. ORBITS: No significant abnormality of visualized orbits. SINUSES / MASTOIDS: Mild mucosal thickening in the ethmoids. ADDITIONAL FINDINGS: No significant atherosclerotic disease appreciated. IMPRESSION: 1. No focal mass, hemorrhage, hydrocephalus, or acute, large territorial infarct. CT cervical spine wo con INDICATION / CLINICAL INFORMATION: 63 years Male; fall from 18 feet, neck pain. TECHNIQUE: Axial CT images of the cervical spine were obtained. Sagittal and coronal reformatted images were produced. All CT scans at this location are performed using CT dose reduction for ALARA by means of automated exposure control. COMPARISON: None available. FINDINGS: POST-SURGICAL CHANGES: None. There may be intravertebral fusion at C6-7. However, this appears to be on a chronic degenerative basis. ALIGNMENT: Straightening of the cervical spine noted. VERTEBRAE: No signs of fracture. Vertebral bodies are grossly normal in height throughout. Mild congenital narrowing of the vertebral canal suggested. Mild facet hypertrophy seen at various le vels. There is osseous foraminal narrowing on the right at C4-5, C5-6, and C7-T1, predominantly related to uncinate hypertrophy. Similar findings on the left at C4-5, C5-6, and C7-T1. INTRAVERTEBRAL DISCS: Multilevel disc space narrowing seen. Mild disc disease seen at various levels with no dominant herniation identified. No definitive signs of significant canal stenosis. PARASPINAL SOFT TISSUES: No significant abnormality. ADDITIONAL FINDINGS: None. IMPRESSION: 1. No signs of acute bony trauma to the cervical spine. - Medical Decision Making This patient allegedly fell from 18 feet up onto his back and buttock. He did not hit his head or have any loss of consciousness.. The patient is awake, alert and oriented. He has some neck pain, mid to low back pain and hip pain. A CT scan was done of the head, cervical spine, thoracic spine, lumbar spine, and abdomen/pelvis and the only finding was a isolated L3 compression fracture without any posterior retropulsion, involvement of the canal or cord. Patient was ambulatory prior to discharge. He was given some pain control. He was given referrals for orthopedic and neurosurgeon specialists. We discussed getting a binding lumbar back brace at a local pharmacy. Discussed the concerns for which she should return immediately to the emergency department such as inability to void his urine, numbness especially if in the groin, increased back pain, weakness. The patient understands and agrees to the plan. Vital signs stable throughout his ED course. - Differential Diagnosis contusion, lumbar strain, spine fracture, hip fracture Critical Care Time: No Critical care attestation.: If time is entered above; I have spent that time in minutes in the direct care of this critically ill patient, excluding procedure time. ED Disposition Clinical Impression: Fall from height of greater than 3 feet Compression fracture of L3 vertebra Qualifiers: Encounter type: initial encounter Qualified Code(s): S32.030A - Wedge compression fracture of third lumbar vertebra, initial encounter for closed fracture Disposition: DC-01 TO HOME OR SELFCARE Is pt being admited?: No Condition: Stable Instructions: Vertebral Compression Fracture (ED) Additional Instructions: Please get a lumbar back brace from a pharmacy or medical supply store. Please follow-up with an orthopedist or neurosurgeon and I am giving him multiple referrals for these specialists. Return to the emergency Department with any worsening of your symptoms, especially if there is any inability to urinate, numbness, weakness, increased back pain, or with any acute distress. You have been prescribed a medication that is sedating and therefore should not be taken prior to driving, working, and responsible for children and in no way should be mixed with alcohol of any quantity. Prescriptions: HYDROcodone/APAP 5-325 [Crystal 5-325 mg TAB] 1 each PO Q6HR PRN #14 tablet PRN Reason: Pain Referrals: [facility] [Provider Group] - 2-3 Days MARIOAL DE LA ROSA MD [Staff Physician] - 2-3 Days RORY JENNINGS MD [Staff Physician] - 2-3 Days Print Language: ALBANIAN
--- NOTE | 2018-10-29 19:19 | Cat Scan Report ---
CT ABDOMEN AND PELVIS WITHOUT CONTRAST INDICATION: Pelvic and hip pain after fall from 18 feet. COMPARISON: CT abdomen and pelvis with contrast from 03/17/2017. TECHNIQUE: Axial, coronal and sagittal CT imaging of the abdomen and pelvis was performed without co ntrast. Lack of intravenous contrast limits evaluation of the vascular and solid organs. All CT sca ns at this location are performed using CT dose reduction for ALARA by means of automated exposure co ntrol. FINDINGS: LOWER CHEST: Dependent atelectasis is noted bilaterally. No additional significant abnormality. LIVER: No significant abnormality. BILIARY: No significant abnormality. PANCREAS: No significant abnormality. SPLEEN: No significant abnormality. ADRENALS: No significant abnormality. KIDNEYS AND URETERS: No significant abnormality. GI TRACT: No significant abnormality of the stomach, small bowel or colon. The appendix is surgicall y absent. PERITONEUM: No free fluid. No free air. No fluid collection. LYMPH NODES: No significant adenopathy. VASCULATURE: No significant abnormality. URINARY BLADDER: No significant abnormality. REPRODUCTIVE ORGANS: No significant abnormality. ADDITIONAL FINDINGS: None. SKELETAL SYSTEM: There are degenerative changes throughout the spine. There is an acute compression f racture of the superior endplate of L3 with mild loss of vertebral height and no involvement of the p osterior wall of the vertebral body or posterior elements. IMPRESSION: 1. Acute compression fracture of L3 as above. 2. No additional acute abnormality of the abdomen or pelvis. Signer Name: Cristopher Reynoso MD Signed: 10/29/2018 7:14 PM Workstation Name: [id number]
--- NOTE | 2018-10-29 19:24 | Cat Scan Report ---
CT THORACIC SPINE WITHOUT CONTRAST HISTORY: Fell down; back pain COMPARISON: None TECHNIQUE: CT images of the thoracic spine were obtained without contrast. Sagittal and coronal refo rmats were post-processed. All CT scans at this location are performed using CT dose reduction for AL TRINA by means of automated exposure control. CONTRAST: None. FINDINGS: Alignment: Normal. No traumatic subluxation. Vertebrae:No significant abnormality. No fracture. Disc Spaces: No significant abnormality allowing for lack of intrathecal contrast. Facet Joints:No significant abnormality. Cervicothoracic Junction:No significant abnormality. Additional Findings: Bridging osteophytes are seen at multiple levels. IMPRESSION: 1. I do not see fracture in the thoracic spine. Signer Name: Stacey Veloz MD Signed: 10/29/2018 7:19 PM Workstation Name: [id number]
--- NOTE | 2018-10-29 19:24 | Cat Scan Report ---
CT head/brain wo con INDICATION / CLINICAL INFORMATION: 63 years Male; fall from 18 feet, dizzy. TECHNIQUE: Routine CT head without contrast. All CT scans at this location are performed using CT dos e reduction for ALARA by means of automated exposure control. COMPARISON: 08/07/2016 FINDINGS: BRAIN / INTRACRANIAL CONTENTS: No acute hemorrhage, mass effect, midline shift, hydrocephalus, or acu te, large territorial infarct. No significant cerebral atrophy. There are minimal areas of decreased attenuation in the white matter of the cerebral hemispheres, as well as the gangliocapsular regions. These are nonspecific findings and may be related to microangiop athy (hypertension, diabetes, atherosclerosis), given the patient's age. It might be difficult to gabbi luate for small areas of ischemia without diffusion imaging by MRI. CRANIOCERVICAL JUNCTION: No significant abnormality. ORBITS: No significant abnormality of visualized orbits. SINUSES / MASTOIDS: Mild mucosal thickening in the ethmoids. ADDITIONAL FINDINGS: No significant atherosclerotic disease appreciated. IMPRESSION: 1. No focal mass, hemorrhage, hydrocephalus, or acute, large territorial infarct. Signer Name: Latrell Castro MD, III Signed: 10/29/2018 7:19 PM Workstation Name: [id number]
--- NOTE | 2018-10-29 19:28 | Cat Scan Report ---
CT LUMBAR SPINE WITHOUT CONTRAST HISTORY: Fell down 18 feet COMPARISON: None TECHNIQUE: CT images of the lumbar spine were obtained without contrast. Sagittal and coronal reform ats were post-processed. All CT scans at this location are performed using CT dose reduction for ALAR A by means of automated exposure control. CONTRAST: None. FINDINGS: Alignment: Normal. No traumatic subluxation. Vertebrae:No significant abnormality. At L3 vertebral body, minimal height loss is seen along the sup erior endplate. Posterior cortex is intact. Bony canal is not compromised. I am unable to determine t he age of these fracture. Of the vertebral bodies are normal. Disc Spaces: L1-L2 disc space is normal. Mild facet joint hypertrophic changes are seen. L2-L3 disc space is normal. Moderate facet joint hypertrophic changes are seen. At L3-L4 disc level, bulging disc is seen with ligamentous hypertrophy. At L4-L5 disc level, bulging disc is seen. Mild facet joint hypertrophic changes are seen. At L5-S1 disc level, disc height is narrowed. Broad-based bony spur is seen extending bilaterally mor e to the left side. Facet joint hypertrophic changes are seen bilaterally. Facet Joints:See above Additional Findings: None IMPRESSION: Compression fracture along the superior endplate of L3 unable to determine the age of these fracture any: Bony canal is not compromised. Signer Name: Stacey Veloz MD Signed: 10/29/2018 7:24 PM Workstation Name: [id number]
--- NOTE | 2018-10-29 19:29 | Cat Scan Report ---
CT cervical spine wo con INDICATION / CLINICAL INFORMATION: 63 years Male; fall from 18 feet, neck pain. TECHNIQUE: Axial CT images of the cervical spine were obtained. Sagittal and coronal reformatted images were pr oduced. All CT scans at this location are performed using CT dose reduction for ALARA by means of aut omated exposure control. COMPARISON: None available. FINDINGS: POST-SURGICAL CHANGES: None. There may be intravertebral fusion at C6-7. However, this appears to be on a chronic degenerative basis. ALIGNMENT: Straightening of the cervical spine noted. VERTEBRAE: No signs of fracture. Vertebral bodies are grossly normal in height throughout. Mild conge nital narrowing of the vertebral canal suggested. Mild facet hypertrophy seen at various levels. There is osseous foraminal narrowing on the right at C4-5, C5-6, and C7-T1, predominantly related to uncinate hypertrophy. Similar findings on the left at C4-5, C5-6, and C7-T1. INTRAVERTEBRAL DISCS: Multilevel disc space narrowing seen. Mild disc disease seen at various levels with no dominant herniation identified. No definitive signs of significant canal stenosis. PARASPINAL SOFT TISSUES: No significant abnormality. ADDITIONAL FINDINGS: None. IMPRESSION: 1. No signs of acute bony trauma to the cervical spine. Signer Name: Latrell Castro MD, III Signed: 10/29/2018 7:24 PM Workstation Name: [id number]
[2018-10-29] MEDS ORDERED: ZOFRAN ONE (19:59)
[2018-10-29] MEDS ORDERED: MORPHINE ONE (19:59)
[2018-10-29] MEDS ORDERED: ZOFRAN IV ONE (20:16)
[2018-10-29] MEDS ORDERED: MORPHINE IV ONE (20:17)
== END 2018-10-29 21:01 | disposition home or self-care (01) ==
LOC: ED 16:52
DX: S32.030A Wedge compression fracture of third lumbar vertebra, initial encounter for closed fracture (principal); M54.2 Cervicalgia; R42 Dizziness and giddiness; I11.0 Hypertensive heart disease with heart failure; I50.9 Heart failure, unspecified; E11.9 Type 2 diabetes mellitus without complications; R10.2 Pelvic and perineal pain; F17.200 Nicotine dependence, unspecified, uncomplicated; W18.30XA Fall on same level, unspecified, initial encounter; Y93.89 Activity, other specified; Y92.89 Other specified places as the place of occurrence of the external cause; Y99.8 Other external cause status
CPT/HCPCS: 70450; 72125; 72128; 72131; 74176; 96374; 96375; 99283; J2270; J2405